=== PATIENT | female | born 1930 | race Caucasian/White ===

== ENCOUNTER 2019-07-04 13:13 | Emergency (ER) | payer OTHER ==
--- OUTSIDE RECORDS SUMMARY | 2019-07-04 13:16 | XMS REPORT ---
:1930 Author Organization eClinicalWorks Care Team Providers Name Role Phone Keith Castañeda Provider Role Unavailable Allergies, Adverse Reactions, Alerts Substance Reaction Event Type Sulfa digestive problems Drug Allergy Problems Problem Type Condition Code Onset Dates Condition Status Assessment Pain in left hip M25.552 Active Assessment Pain in right hip M25.551 Active Problem Essential (primary) hypertension I10 Active Problem Osteopenia, unspecified location M85.80 Active Problem Acquired hypothyroidism E03.9 Active Assessment Osteopenia, unspecified location M85.80 Active Assessment Acquired hypothyroidism E03.9 Active Assessment Essential (primary) hypertension I10 Active Medications Medication Code Code Instructions Start End Status Dosage System Date Date Lisinopril [facility] 52874165328 10 MG Orally Active 1 tablet Once a day Amlodipine [facility] 81893638995 10 MG Orally Active 1 tablet Besylate Once a day Levothyroxine [facility] 82497416617 50 MCG Orally Active 1 tablet Sodium Once a day on an empty stomach in the morning Metoprolol [facility] 70679442854 25 MG Orally Jul 10, Active 1 tablet Succinate ER Once a day 2018 Results No Known Results Summary Purpose eClinicalWorks Submission
--- OUTSIDE RECORDS SUMMARY | 2019-07-04 13:16 | XMS REPORT ---
:1930 Author Organization eClinicalWorks Care Team Providers Name Role Phone Keith Castañeda Provider Role Unavailable Allergies No Known Allergies Problems Problem Type Condition Code Onset Dates Condition Status Problem Essential (primary) hypertension I10 Active Problem Osteopenia, unspecified location M85.80 Active Problem Acquired hypothyroidism E03.9 Active Assessment Acquired hypothyroidism E03.9 Active Assessment Essential (primary) hypertension I10 Active Medications Medication Code Code Instructions Start End Status Dosage System Date Date Lisinopril [facility] 44241810414 20 MG Orally Active 1 tablet Once a day Metoprolol [facility] 91989912815 25 MG Orally Jul 10, Active 1 tablet Succinate ER Once a day 2018 Levothyroxine [place] 93824773993 50 MCG Orally Active 1 tablet Sodium Once a day on an empty stomach in the morning Amlodipine [facility] 28416073659 10 MG Orally Active 1 tablet Besylate Once a day Results No Known Results Summary Purpose eClinicalWorks Submission
--- OUTSIDE RECORDS SUMMARY | 2019-07-04 13:16 | XMS REPORT ---
[...] Active Assessment Acquired hypothyroidism E03.9 Active Assessment Osteopenia, unspecified location M85.80 Active Assessment Essential (primary) hypertension I10 Active Medications Medication Code Code Instructions Start End Status Dosage System Date Date Lisinopril [facility] 88430394111 20 MG Orally Active 1 tablet Once a day Levothyroxine [facility] 04649734302 50 MCG Orally Active 1 tablet Sodium Once a day on an empty stomach in the morning Amlodipine [facility] 43706346669 10 MG Orally Active 1 tablet Besylate Once a day Metoprolol [facility] 32799245299 25 MG Orally Jul 10, Active 1 tablet Succinate ER Once a day 2018 Results No Known Results Summary Purpose eClinicalWorks Submission
--- OUTSIDE RECORDS SUMMARY | 2019-07-04 13:16 | XMS REPORT ---
:1930 Author Organization eClinicalWorks Care Team Providers Name Role Phone Keith Castañeda Provider Role Unavailable Allergies No Known Allergies Problems Problem Type Condition Code Onset Dates Condition Status Problem Essential (primary) hypertension I10 Active Problem Osteopenia, unspecified location M85.80 Active Problem Acquired hypothyroidism E03.9 Active Assessment Essential (primary) hypertension I10 Active Medications Medication Code Code Instructions Start End Status Dosage System Date Date Metoprolol ND 70607862445 25 MG Orally Jul 10, Active 1 tablet Succinate ER Once a day 2018 Metoprolol [facility] 00121831069 25 MG Orally Inactive 1 capsule Succinate Once a day Results No Known Results Summary Purpose eClinicalWorks Submission
--- OUTSIDE RECORDS SUMMARY | 2019-07-04 13:16 | XMS REPORT ---
[...] End Status Dosage System Date Date Lisinopril [facility] 82001427392 5 MG Orally Active 1 tablet Once a day Amlodipine [facility] 23716787038 10 MG Orally Active 1 tablet Besylate Once a day Metoprolol [facility] 34437608271 25 MG Orally Active 1 capsule Succinate Once a day Levothyroxine [facility] 95500539972 50 MCG Orally Active 1 tablet Sodium Once a day on an empty stomach in the morning Results No Known Results Summary Purpose eClinicalWorks Submission
[2019-07-04] MEDS ORDERED: ONDANSETRON 4 MG/2 ML VIAL ONE (13:50)
[2019-07-04] MEDS ORDERED: MORPHINE 4 MG/ML SYR ONE (13:50)
--- NOTE | 2019-07-04 14:17 | RAD REPORT ---
EXAM DESCRIPTION: CT - CTHCSPWOC - 07/04/2019 1:55 pm CLINICAL HISTORY: Fall, head and neck injury COMPARISON: CT head and cervical spine August 2017, CT head February 2018 TECHNIQUE: Axial 5 mm thick images of the head were obtained. Axial 2 mm thick images of the cervic al spine were obtained with sagittal and coronal reconstruction images generated and reviewed. All CT scans are performed using dose optimization technique as appropriate and may include automated exposure control or mA/KV adjustment according to patient size. FINDINGS: No intracranial hemorrhage, mass, edema or acute intracranial finding. No suspicion for acute infarct ion. Advanced atrophy and chronic ischemic changes match comparison. Ventricles are in proportion to the amount of volume loss. Mastoid air cells and paranasal sinuses are clear. No globe or orbit abnor mality seen. Cervical bodies are normal in height. Slight retrolisthesis of C4 and C5 similar to comparison. C4-5 and C5-6 disc space narrowing also similar to comparison. There is bilateral bony foraminal encroachm ent at both of these levels. No other disc space narrowing. No fracture or acute bony abnormality. Ce ntral canal detail is inherently limited. No paraspinal mass or hematoma. IMPRESSION: Advanced atrophy and chronic ischemic changes are present with no acute intracranial fin ding. No significant changes to the head since February 2018. Cervical spine degenerative change as detailed. No acute finding.
--- NOTE | 2019-07-04 15:12 | RAD REPORT ---
EXAM DESCRIPTION: RAD - Knee Left 3 View - 07/04/2019 2:55 pm CLINICAL HISTORY: Fall, left knee pain COMPARISON: None. FINDINGS: No fracture, dislocation or periosteal reaction.No joint effusion seen. No joint space mary beth rowing. Minimal degenerative spurring at the articular margins. Arterial calcifications are present. No suspicious soft tissue finding. IMPRESSION: Minimal degenerative change with no acute bone or joint finding. Clinical concerns for internal derangement or occult bony injury could be further assessed with MR im aging.
--- NOTE | 2019-07-04 15:13 | RAD REPORT ---
EXAM DESCRIPTION: RAD - Wrist Left 3 View - 07/04/2019 2:55 pm CLINICAL HISTORY: Fall, left wrist pain COMPARISON: None. FINDINGS: Comminuted distal left radius fracture is present. There is a transverse fracture of the m etaphysis an a sagittally oriented fracture that extends to the articular surface. Approximately 20 d egree dorsal angulation deformity is seen with mild dorsal surface impaction. Small ulna styloid is p robably fractured as well. There is no dislocation or periosteal reaction noted. Soft tissue swelling is present. IMPRESSION: Comminuted distal left radius fracture as detailed.
[2019-07-04] MEDS ORDERED: DERMABOND SKIN ADHESIVE TOP ONE (15:14)
[2019-07-04] MEDS ORDERED: LIDOCAINE 1% MPF 5 ML VIAL ONE (15:17)
[2019-07-04] MEDS ORDERED: TRAMADOL HCL 50 MG TAB ONE (15:18)
--- NOTE | 2019-07-04 15:43 | ER ---
Nurse's Notes [facility] Name: Ольга Altman Age: 88 yrs Sex: Female : 1930 Arrival Date: 07/04/2019 Time: 13:17 Bed 24 Private MD: Diagnosis: Laceration of lower lip without foreign body;Displaced fracture of head of left radius Presentation: 07/04 13:22 Presenting complaint: Patient states: She stumbled over her feet and fell and hit her [facility] face and her hands. Blood noted to lower lip, splint applied to left wrist by EMS. Patient states "It's obviously broken, you can see where its shaped wrong" Bruising noted to left knee. Denies LOC, vomiting. Denies taking any blood thinners. Care prior to arrival: None. Mechanism of Injury: Fall from standing position. Trauma event details: Injury occurred in the [facility]. 13:22 Acuity: KENNEY 3 aj1 13:22 Method Of Arrival: EMS: [facility] aj1 13:28 Transition of care: patient was not received from another setting of care. Onset of [facility] symptoms was July 04, 2019. Risk Assessment: Do you want to hurt yourself or someone else? Patient reports no desire to harm self or others. Initial Sepsis Screen: Does the patient meet any 2 criteria? No. Patient's initial sepsis screen is negative. Does the patient have a suspected source of infection? No. Patient's initial sepsis screen is negative. Historical: - Allergies: 13:29 Codeine; aj1 13:29 Levothyroxine Sodium; aj1 13:29 Metoprolol Tartrate; aj1 13:29 Sulfa (Sulfonamide Antibiotics); aj1 13:29 Demerol; aj1 13:29 Fentanyl; aj1 - Home Meds: 13:29 Lisinopril Oral [Active]; aj1 - PMHx: 13:29 Atrial Fib; gallbladder infection; Hypertension; Hypothyroidism; aj1 - Immunization history:: Flu vaccine is not up to date. - Social history:: Smoking status: Patient/guardian denies using tobacco. - Ebola Screening: : Patient denies travel to an Ebola-affected area in the 21 days before illness onset. Screenin:22 Abuse screen: Denies threats or abuse. Denies injuries from another. Tuberculosis aj1 screening: No symptoms or risk factors identified. Primary Survey: 13:22 NO uncontrolled hemorrhage observed. A: The patient is alert. Airway: patent. aj1 Breathing/Chest: Respiratory pattern: regular, Respiratory effort: spontaneous, unlabored, Breath sounds: clear, bilaterally. Chest inspection: symmetrical rise and fall of the chest. Circulation: Pulses: palpable right radial artery, right dorsalis pedis artery, left radial artery and left dorsalis pedis artery. Skin color: pink. Disability Alert. Exposure/Environment: Obvious injury(ies) are noted at this time: Blood noted to lower lip, swelling to left wrist, bruising to left knee. Secondary Survey: 13:22 HEENT: Face Other Dried blood noted to lower lip. Gastrointestinal: No deficits noted. aj1 : No deficits noted. Musculoskeletal: Range of motion: limited in left wrist Swelling present in left wrist. Assessment: 13:00 Reassessment: Patient appears in no apparent distress at this time. pt request rings sg removed from finger and placed in zebra print coin pouch by Reynaldo PIMENTEL. 13:22 General: Appears in no apparent distress. uncomfortable, Behavior is calm, cooperative, aj1 appropriate for age. Pain: Complains of pain in left wrist Pain does not radiate. Pain currently is 9 out of 10 on a pain scale. Quality of pain is described as sharp, Pain began suddenly, Is continuous, Aggravated by repositioning. Neuro: Level of Consciousness is awake, alert, obeys commands, Oriented to person, place, time, situation. EENT: No signs and/or symptoms were reported regarding the EENT system. Cardiovascular: Patient's skin is warm and dry. Respiratory: Airway is patent Respiratory effort is even, unlabored, Respiratory pattern is regular, symmetrical, Breath sounds are clear bilaterally. GI: No signs and/or symptoms were reported involving the gastrointestinal system. : No signs and/or symptoms were reported regarding the genitourinary system. Derm: Bruising that is dark purple, on left knee. Musculoskeletal: Range of motion: limited in left wrist Swelling present in left wrist. 16:30 Reassessment: Patient appears in no apparent distress at this time. Patient and/or sg family updated on plan of care and expected duration. Pain level reassessed. Patient is alert, oriented x 3, equal unlabored respirations, skin warm/dry/pink. Vital Signs: 13:22 BP 176 / 106; Pulse 71; Resp 18; Temp 98.0; Pulse Ox 99% on R/A; Weight 81.65 kg (R); aj1 Height 5 ft. 4 in. (162.56 cm) (R); Pain 9/10; 14:20 BP 144 / 72; Pulse 77; Resp 17; Pulse Ox 99% on R/A; sg 15:20 BP 146 / 78; Pulse 69; Resp 17; Pulse Ox 99% on R/A; sg 16:20 BP 142 / 76; Pulse 71; Resp 18; Temp 98.0; Pulse Ox 99% on R/A; sg 13:22 Body Mass Index 30.90 (81.65 kg, 162.56 cm) aj1 [place] Coma Score: 13:22 Eye Response: spontaneous(4). Verbal Response: oriented(5). Motor Response: obeys aj1 commands(6). Total: 15. Trauma Score (Adult): 13:22 Eye Response: spontaneous(1); Verbal Response: oriented(1); Motor Response: obeys aj1 commands(2); Systolic BP: > 89 mm Hg(4); Respiratory Rate: 10 to 29 per min(4); [place] Score: 15; Trauma Score: 12 ED Course: 13:17 Patient arrived in ED. sg 13:17 Reynaldo Villasenor [facility]-C [facility]. la1 13:17 Hernando Robertson MD is Attending Physician. la1 13:21 Gustavo Steel, RN is Primary Nurse. sg 13:22 Patient has correct armband on for positive identification. Bed in low position. Call aj1 light in reach. 13:22 Patient maintains SpO2 saturation greater than 95% on room air. Thermoregulation: warm aj1 blanket given to patient. 13:24 Triage completed. aj1 13:29 Arm band placed on. aj1 13:30 Missed attempt(s): 22 gauge in right hand. Bleeding controlled, band aid applied, sg catheter tip intact. 13:37 Missed attempt(s): 22 gauge in right wrist. Bleeding controlled, band aid applied, sg catheter tip intact. 13:53 CT completed. Patient tolerated procedure well. Patient moved back from CT. bq 13:55 CT Head C Spine In Process Unspecified. EDMS 14:56 Knee Left 3 View XRAY In Process Unspecified. EDMS 14:56 Wrist Left (3 View) XRAY In Process Unspecified. EDMS 15:10 Orthoglass splint: Sugar tong splint applied on left arm. Sling applied to left arm. sg 16:30 No provider procedures requiring assistance completed. Patient did not have IV access sg during this emergency room visit. Administered Medications: 14:56 CANCELLED (Other Intervention Used): Demerol 25 mg IM once; RASS on ADMIN: Combtv4, la1 Very Agttd3, Agttd2, Rstlss1, AlertClm0, Drwsy-1, Lt Sdtn-2, Mod Sdtn-3, Dp Sdtn-4, UnArsble-5 15:21 Drug: Lidocaine (1 %) 5 ml Volume: 5 ml; Route: Infiltration; sg 15:30 Not Given (Other Intervention Used): morphine 2 mg IVP once; (PAIN>8) RASS on ADMN: la1 Combtv4, Very Agttd3, Agttd2, Rstlss1, AlertClm0, Drwsy-1, LtSdtn-2, ModSdtn-3, DpSdtn-4, UnArsble-5 x2 15:30 Not Given (Other Intervention Used): Zofran 4 mg IVP once; over 2 minutes la1 15:30 Not Given (Other Intervention Used): morphine 2 mg IM once; RASS on ADMIN: Combtv4, la1 Very Agttd3, Agttd2, Rstlss1, AlertClm0, Drwsy-1, Lt Sdtn-2, Mod Sdtn-3, Dp Sdtn-4, UnArsble-5 15:51 Drug: traMADol 50 mg Route: PO; sg 16:30 Follow up: Response: No adverse reaction; Pain is decreased sg Outcome: 15:42 Discharge ordered by . la1 16:30 Discharged to home via wheelchair, with family. sg 16:30 Condition: good 16:30 Discharge instructions given to patient, family, Instructed on discharge instructions, follow up and referral plans. no drinking with medication, no driving heavy equipment, medication usage, safety practices, Demonstrated understanding of instructions, follow-up care, medications, Prescriptions given X 1. 16:30 Patient's length of stay in the Emergency Department was greater than 2 hours. sg 16:32 Patient left the ED. sg Signatures: Dispatcher [employer] EDLeela Lipscomb RN RN aj1 Gustavo Steel RN RN Tory Augustine Lee, EMBEDDER-C EMBEDDER-Cla1
--- NOTE | 2019-07-04 15:43 | EDPHYS ---
Physician Documentation [facility] Name: Ольга Altman Age: 88 yrs Sex: Female : 1930 Arrival Date: 07/04/2019 Time: 13:17 Bed 24 Private MD: ED Physician Hernando Robertson HPI: 07/04 13:31 This 88 yrs old Female presents to ER via EMS with complaints of Fall Injury. la1 13:31 Details of fall: The patient fell from an upright position, while walking. Onset: The la1 symptoms/episode began/occurred just prior to arrival. Associated injuries: The patient sustained neck injury, pain, nose, abrasion, lower lip, laceration, 0.5 cm(s), left knee, contusion, left wrist, deformity, ecchymosis, painful injury. Severity of symptoms: At their worst the symptoms were moderate. The patient has not experienced similar symptoms in the past. pt reports she was walking up her steps and tripped on the step falling forward. Reports deformity to left wrist, currently in too splint and sling. cap refill <2 seconds distal to injury site. Pt alert, oriented x4, denies LOC or use of blood thinners. Historical: - Allergies: 13:29 Codeine; aj1 13:29 Levothyroxine Sodium; aj1 13:29 Metoprolol Tartrate; aj1 13:29 Sulfa (Sulfonamide Antibiotics); aj1 13:29 Demerol; aj1 13:29 Fentanyl; aj1 - Home Meds: 13:29 Lisinopril Oral [Active]; aj1 - PMHx: 13:29 Atrial Fib; gallbladder infection; Hypertension; Hypothyroidism; aj1 - Immunization history:: Flu vaccine is not up to date. - Social history:: Smoking status: Patient/guardian denies using tobacco. - Ebola Screening: : Patient denies travel to an Ebola-affected area in the 21 days before illness onset. ROS: 15:32 Constitutional: Negative for fever, chills, and weight loss, Eyes: Negative for injury, la1 pain, redness, and discharge. 15:33 ENT: Negative for injury, pain, and discharge, Neck: Negative for injury, pain, and la1 swelling, Cardiovascular: Negative for chest pain, palpitations, and edema, Respiratory: Negative for shortness of breath, cough, wheezing, and pleuritic chest pain, Abdomen/GI: Negative for abdominal pain, nausea, vomiting, diarrhea, and constipation, Back: Negative for injury and pain, : Negative for injury, bleeding, discharge, and swelling. 15:33 Neuro: Negative for headache, weakness, numbness, tingling, and seizure. 15:33 MS/extremity: Positive for deformity, ecchymosis, pain, swelling, tenderness, of the left wrist. 15:33 Skin: Positive for laceration(s), of the lower lip. Exam: 15:34 Constitutional: This is a well developed, well nourished patient who is awake, alert, la1 and in no acute distress. Head/Face: Normocephalic, atraumatic. Eyes: Pupils equal round and reactive to light, extra-ocular motions intact. Periorbital areas with no swelling, redness, or edema. 15:34 Neck: Trachea midline, no thyromegaly or masses palpated, and no cervical lymphadenopathy. Supple, full range of motion without nuchal rigidity, or vertebral point tenderness. No Meningismus. Chest/axilla: Normal chest wall appearance and motion. Nontender with no deformity. No lesions are appreciated. Cardiovascular: Regular rate and rhythm with a normal S1 and S2. Respiratory: Lungs have equal breath sounds bilaterally, clear to auscultation Abdomen/GI: Soft, non-tender, with normal bowel sounds. Back: No spinal tenderness. No costovertebral tenderness. Full range of motion. 15:34 ENT: External ear(s): are unremarkable, Ear canal(s): are normal, Nose: is normal, Mouth: Lips: lacerated, approximately 2.5 cm(s), lower lip. 15:34 Musculoskeletal/extremity: Extremities: noted in the left wrist: deformity, ecchymosis, pain, swelling, tenderness, Pulses: noted to be 3+ in the right radial artery and left radial artery, Perfusion: the patient is normally perfused throughout, pink, warm, noted to have brisk capillary refill, Perfusion: the extremity is normally perfused throughout, pink, warm, with brisk capillary refill. 15:34 Skin: injury, abrasion(s), very small abrasion noted, of the nose, contusion(s), that are superficial, of the left knee. Vital Signs: 13:22 BP 176 / 106; Pulse 71; Resp 18; Temp 98.0; Pulse Ox 99% on R/A; Weight 81.65 kg (R); aj1 Height 5 ft. 4 in. (162.56 cm) (R); Pain 9/10; 14:20 BP 144 / 72; Pulse 77; Resp 17; Pulse Ox 99% on R/A; sg 15:20 BP 146 / 78; Pulse 69; Resp 17; Pulse Ox 99% on R/A; sg 16:20 BP 142 / 76; Pulse 71; Resp 18; Temp 98.0; Pulse Ox 99% on R/A; sg 13:22 Body Mass Index 30.90 (81.65 kg, 162.56 cm) aj1 [place] Coma Score: 13:22 Eye Response: spontaneous(4). Verbal Response: oriented(5). Motor Response: obeys aj1 commands(6). Total: 15. Trauma Score (Adult): 13:22 Eye Response: spontaneous(1); Verbal Response: oriented(1); Motor Response: obeys aj1 commands(2); Systolic BP: > 89 mm Hg(4); Respiratory Rate: 10 to 29 per min(4); Carlton Score: 15; Trauma Score: 12 Laceration: 15:31 Wound Repair of 2.5cm ( 1.0in ) subcutaneous laceration to lower lip. Distal la1 neuro/vascular/tendon intact. Anesthesia: Local anesthetic administered with 2 mls of 1% lidocaine. Wound prep: Moderate cleansing, Copious irrigation. Skin closed with 3 5-0 chromic using simple sutures and sterile technique. Patient tolerated well. MDM: 13:17 Patient medically screened. la1 14:31 ED course: Pt refused IV, states they can only put it in her hand but hand vein is la1 blown, will not let staff attempt elsewhere, states she cannot take morphine but whatever we gave her in the past works, looked though old records and pt had received demerol in the past, will give demerol IM for pain control until it is determined if the pt wrist will need to be reduced.. 15:37 Data reviewed: vital signs, nurses notes, radiologic studies, I have discussed the la1 patient's presentation/case with the attending Emergency Department Physician; and as a result, I will discharge patient. Data interpreted: Pulse oximetry: on room air is 99 %. Interpretation: normal. Test interpretation: by ED physician or midlevel provider: plain radiologic studies. Counseling: I had a detailed discussion with the patient and/or guardian regarding: the historical points, exam findings, and any diagnostic results supporting the discharge/admit diagnosis, the presence of at least one elevated blood pressure reading (>120/80) during this emergency department visit, lab results, radiology results, the need for outpatient follow up, a orthopedic surgeon, to return to the emergency department if symptoms worsen or persist or if there are any questions or concerns that arise at home. ED course: discussed radiology findings with Dr. Robertson, will splint have have patient FU with ortho, pulses 3+ radial PETAR, no numbness or tingling reported, pain not out of proportion, cap refill < 3 secs.. 07/04 13:27 Order name: CT Head C Spine; Complete Time: 14:50 la1 07/04 13:27 Order name: Knee Left 3 View XRAY la1 07/04 13:27 Order name: Wrist Left (3 View) XRAY la1 07/04 15:20 Order name: Dressing - Wound; Complete Time: 15:31 sg 07/04 15:20 Order name: Setup Suture Tray; Complete Time: 15:31 sg 07/04 15:32 Order name: Sugar Tong Forearm Splint; Complete Time: 15:51 la1 Administered Medications: 14:56 CANCELLED (Other Intervention Used): Demerol 25 mg IM once; RASS on ADMIN: Combtv4, la1 Very Agttd3, Agttd2, Rstlss1, AlertClm0, Drwsy-1, Lt Sdtn-2, Mod Sdtn-3, Dp Sdtn-4, UnArsble-5 15:21 Drug: Lidocaine (1 %) 5 ml Volume: 5 ml; Route: Infiltration; sg 15:30 Not Given (Other Intervention Used): morphine 2 mg IVP once; (PAIN>8) RASS on ADMN: la1 Combtv4, Very Agttd3, Agttd2, Rstlss1, AlertClm0, Drwsy-1, LtSdtn-2, ModSdtn-3, DpSdtn-4, UnArsble-5 x2 15:30 Not Given (Other Intervention Used): Zofran 4 mg IVP once; over 2 minutes la1 15:30 Not Given (Other Intervention Used): morphine 2 mg IM once; RASS on ADMIN: Combtv4, la1 Very Agttd3, Agttd2, Rstlss1, AlertClm0, Drwsy-1, Lt Sdtn-2, Mod Sdtn-3, Dp Sdtn-4, UnArsble-5 15:51 Drug: traMADol 50 mg Route: PO; sg 16:30 Follow up: Response: No adverse reaction; Pain is decreased sg Disposition: 07/05 15:46 Co-signature as Attending Physician, Hernando Robertson MD. ma2 Disposition: 07/04/19 15:42 Discharged to Home. Impression: Laceration of lower lip without foreign body, Displaced fracture of head of left radius. - Condition is Stable. - Discharge Instructions: Cast or Splint Care, Adult, Facial Laceration, Wrist Fracture Treated With Immobilization, Wrist Fracture Treated With Immobilization, [id number]. - Prescriptions for Tramadol 50 mg Oral Tablet - take 1 tablet by ORAL route every 8 hours as needed; 20 tablet. - Medication Reconciliation Form, Thank You Letter, Prescription Opioid Use form. - Follow up: Private Physician; When: 2 - 3 days; Reason: Recheck today's complaints, Re-evaluation by your physician. - Problem is new. - Symptoms have improved. - Notes: Please call to schedule appointment with an orthopedic doctor Friday or Friday morning, if your pain or symptoms get worse please immediately return to the emergency department. There is a list of the orthopedic doctors in your paperwork. Take ibuprofen and tylenol at home and the tramadol only has needed for pain. Keep your splint on until you follow up with the orthopedic doctor. Signatures: Dispatcher [employer] EDLeela Lipscomb RN RN aj1 Gustavo Steel RN RN sg Attema, Lee, FNP-C MARGARITO-Hernando Garcia MD MD ma2 Corrections: (The following items were deleted from the chart) 07/04 14:56 14:31 Demerol 25 mg IM once; RASS on ADMIN: Combtv4, Very Agttd3, Agttd2, Rstlss1, la1 AlertClm0, Drwsy-1, Lt Sdtn-2, Mod Sdtn-3, Dp Sdtn-4, UnArsble-5 ordered. la1 15:30 13:27 IV Saline Lock ordered. la1 la1 15:30 15:20 Sterile Gloves ordered. sg la1 16:32 15:42 07/04/2019 15:42 Discharged to Home. Impression: Laceration of lower lip without sg foreign body; Displaced fracture of head of left radius. Condition is Stable. Forms are Medication Reconciliation Form, Thank You Letter, Antibiotic Education, Prescription Opioid Use. Follow up: Private Physician; When: 2 - 3 days; Reason: Recheck today's complaints, Re-evaluation by your physician. Problem is new. Symptoms have improved. la1
== END 2019-07-04 16:32 | disposition home or self-care (01) ==
LOC: ER 13:13
PROC: 0CQ1XZZ Repair Lower Lip, External Approach (ICD-10-PCS; principal; 2019-07-04)
DX: S52.122A Displaced fracture of head of left radius, initial encounter for closed fracture (principal); W01.0XXA Fall on same level from slipping, tripping and stumbling without subsequent striking against object, initial encounter; Y93.9 Activity, unspecified; Y92.9 Unspecified place or not applicable; S01.511A Laceration without foreign body of lip, initial encounter; Z88.6 Allergy status to analgesic agent; Z88.2 Allergy status to sulfonamides; I10 Essential (primary) hypertension
CPT/HCPCS: 70450; 72125; 99285; J2405

== ENCOUNTER 2020-04-08 15:21 | Inpatient (IN) | payer OTHER ==
--- OUTSIDE RECORDS SUMMARY | 2020-04-08 15:32 | XMS REPORT | Continuity of Care Document ---
:1930 Author Organization [facility] t Address [address] [place] [address] Care Team Providers Name Role Phone Susan Biswas MD Attending Clinician Problems Condition Condition Condition Status Onset Resolution Last Treating Co mments Source Name Details Category Date Date Treatment Clinician Date Essential Essential Diagnosis Active [facility]primary[facility] (primary) Luke s - hypertensi hypertensi Me moria on on l [facility] Osteopenia Osteopenia Diagnosis Active [facility] , [facility] - unspecifie unspecifie Me moria d location d location l [facility] Acquired Acquired Diagnosis Active [facility] hypothyroi hypothyroi Jessica kes - dism dism [facility] Allergies, Adverse Reactions, Alerts Allergy Allergy Status Severity Reaction(s) Onset Inactive Treating Comm ents Source Name Type Date Date Clinician Sulfa Adverse Active digestive [facility] Reaction problems [facility] - [facility] Medications Ordered Filled Start Stop Current Ordering Indication Dosage Frequency Signature Comments Components Source Medication Medication Date Date Medication? Clinician (SIG) Name Name Metoprolol Metoprolol Yes Keith [address] [facility] Succinate Succinate 1-25 Maddy Luke s - ER ER 00:00: [facility]oria 00 l [facility] Amlodipine Amlodipine Yes Keith [address] [facility] Besylate Besylate Maddy [facility] - [facility] Levothyroxi Levothyroxi Yes Keith [address] [facility] ne Sodium ne Sodium Maddy on an Stef es - empty [facility] stomach in l [facility] Lisinopril Lisinopril Yes Keith [address] [facility] Maddy [facility] - [facility] Procedures This patient has no known procedures. Encounters Start End Encounter Admission Attending Care Care Encounter Source Date/Time Date/Time Type Type Clinicians Facility Department ID 2019-07-28 2019-07-28 Office SIMONE Biswas [id number] 13:42:08 14:29:42 Visit [facility] [id number] Surgical [id number] Specialti [id number] [address] 2018-08-25 2018-08-25 [facility] [id number] [facility] 09:15:00 09:15:00 [facility] 2018-08-11 2018-08-11 [facility] [id number] 09:45:00 09:45:00 [facility] 2018-08-03 2018-08-03 [facility] [id number] [facility] 11:00:00 11:00:00 [facility] 2018-07-09 2018-07-09 [facility] [id number] [facility] [address] 16:56:00 16:56:00 [facility] 2018-07-09 2018-07-09 [facility] [id number] [address] 11:15:00 11:15:00 [facility] Clinics Results This patient has no known results.
[2020-04-08] MEDS ORDERED: MEPERIDINE HCL 50 MG/ML ONE (16:09)
[2020-04-08] MEDS ORDERED: ONDANSETRON 4 MG/2 ML VIAL ONE (16:27)
[2020-04-08 17:35] LABS: ALT/SGPT 20 U/L (12-78); Albumin 3.6 g/dL (3.4-5.0); Alkaline Phosphatase 92 U/L (45-117); BUN Blood Urea Nitrogen 16 mg/dL (7-18); Bicarbonate 31 mmol/L (21-32); Bilirubin Direct < 0.1 mg/dL (0-0.2); Bilirubin Total 0.4 mg/dL (0.2-1.0); Glucose Level 115 mg/dL (74-106); Lipase 103 U/L (73-393); Protein, Total 7.7 g/dL (6.4-8.2); Sodium Level 141 mmol/L (136-145)
[2020-04-08 17:36] LABS: AST/SGOT 19 U/L (15-37); Potassium 3.8 mmol/L (3.5-5.1)
[2020-04-08 17:40] LABS: Basophils % 0.2 % (0-1.3); Hematocrit 42.5 % (36.0-45.0); Lymphocytes % 7.5 % (15.3-44.8); MPV 7.3 fL (7.6-11.3); RBC Red Blood Cell Count 4.79 M/uL (3.86-4.86)
[2020-04-08 20:06] LABS: Urine Bacteria <20 /HPF (<20); Urine Culture Reflex Order NOT NEEDED; Urine RBC <5 /HPF (NONE SEEN)
[2020-04-08 20:07] LABS: Urine Blood NEGATIVE (NEG); Urine Glucose NEGATIVE (NEG); Urine Protein 1+ (NEG); Urine Specific Gravity 1.025 (1.005-1.030)
--- NOTE | 2020-04-08 21:07 | RAD REPORT ---
EXAM DESCRIPTION: CTAbdomen Pelvis W Contrast - 04/08/2020 8:51 pm CLINICAL HISTORY: Abdominal pain. ABD PAIN COMPARISON: Abdomen Pelvis W Contrast dated 01/08/2017 TECHNIQUE: Biphasic CT imaging of the abdomen and pelvis was performed with 100 ml non-ionic IV cont rast. All CT scans are performed using dose optimization technique as appropriate and may include automated exposure control or mA/KV adjustment according to patient size. FINDINGS: The lung bases are clear. Small gallstone is present in the gallbladder. Mild fatty liver is seen. Mild fluid is seen around the liver edge. Mild fluid is also noted around t he spleen. Spleen is normal in size. Small hiatal hernia. The pancreas, adrenal glands and kidneys ar e within normal limits. No focal mass or hydronephrosis. No bowel obstruction, free air, free fluid or abscess. Mild sigmoid diverticulosis coli without diver ticulitis. The appendix is not identified as a discrete structure, however, no secondary findings of appendicitis are identified. No evidence of significant lymphadenopathy. Mild lumbar degenerative changes. IMPRESSION: Cholelithiasis. Mild fatty liver with mild fluid around the liver spleen. Small hiatal hernia. Sigmoid diverticulosis coli without diverticulitis.
--- NOTE | 2020-04-08 21:40 | EDPHYS ---
Physician Documentation [facility] Name: Ольга Altman Age: 89 yrs Sex: Female : 1930 Arrival Date: 04/08/2020 Time: 15:24 Bed 8 Private MD: ED Physician Babatunde Crowley HPI: 04/08 15:36 This 89 yrs old Female presents to ER via EMS with complaints of Abdominal rn Pain. 15:36 The patient presents with abdominal pain right lower quadrant. Onset: The rn symptoms/episode began/occurred today. The symptoms do not radiate. Associated signs and symptoms: Pertinent positives: nausea, Pertinent negatives: blood in stools, fever, shortness of breath, vomiting blood. Modifying factors: The symptoms are alleviated by nothing, the symptoms are aggravated by touching the area. Severity of pain: At its worst the pain was moderate in the emergency department the pain is unchanged. The patient has not experienced similar symptoms in the past. The patient has not recently seen a physician. Historical: - Allergies: 15:25 Codeine; rb1 15:25 Demerol; rb1 15:25 Fentanyl; rb1 15:25 Levothyroxine Sodium; rb1 15:25 Metoprolol Tartrate; rb1 15:25 Sulfa (Sulfonamide Antibiotics); rb1 - Home Meds: 15:25 Lisinopril Oral [Active]; rb1 - PMHx: 15:25 Atrial Fib; gallbladder infection; Hypertension; Hypothyroidism; rb1 - Immunization history:: Adult Immunizations up to date. - Social history:: Smoking status: Patient/guardian denies using. - Family history:: not pertinent. - Hospitalizations: : No recent hospitalization is reported. ROS: 15:36 Constitutional: Negative for fever, chills, and weight loss, Eyes: Negative for injury, rn pain, redness, and discharge, Cardiovascular: Negative for chest pain, palpitations, and edema, Respiratory: Negative for shortness of breath, cough, wheezing, and pleuritic chest pain, Abdomen/GI: Negative for vomiting, and constipation, Back: Negative for injury and pain, : Negative for injury, bleeding, discharge, and swelling, MS/Extremity: Negative for injury and deformity, Skin: Negative for injury, rash, and discoloration, Neuro: Negative for headache, weakness, numbness, tingling, and seizure. Exam: 15:36 Constitutional: This is a well developed, well nourished patient who is awake, alert, rn and in no acute distress. Head/Face: Normocephalic, atraumatic. ENT: MMM Cardiovascular: Regular rate and rhythm. No pulse deficits. Respiratory: No increased work of breathing, no retractions or nasal flaring. Abdomen/GI: soft, right sided abd tenderness, no distension, no masses Skin: Warm, dry MS/ Extremity: Pulses equal, no cyanosis. Neurovascular intact. Full, normal range of motion. Equal circumference. Neuro: Awake and alert, GCS 15, oriented to person, place, time, and situation. Vital Signs: 15:25 BP 169 / 106; Pulse 64; Resp 17; Temp 97.6; Pulse Ox 98% ; Weight 86.18 kg; Height 8 rb1 ft. 56 in. (386.08 cm); Pain 7/10; 16:22 BP 179 / 114; Pulse 71; Resp 16; Pulse Ox 98% ; rb1 17:21 BP 180 / 106; Pulse 70; Resp 17; Pulse Ox 99% ; rb1 19:00 BP 170 / 97; Pulse 81; Resp 17; Pulse Ox 97% on R/A; rv 20:00 BP 165 / 81; Pulse 79; Resp 18; Pulse Ox 97% on R/A; rv 21:00 BP 171 / 88; Pulse 76; Resp 17; Pulse Ox 96% on R/A; rv 22:00 BP 165 / 86; Pulse 81; Resp 17; Temp 98; Pulse Ox 96% on R/A; rv 15:25 Body Mass Index 5.78 (86.18 kg, 386.08 cm) rb1 Procedures: 17:13 Peripheral line: by aseptic technique a peripheral line was placed in the right rn antecubital vein, Placed by Dr. Crowley using ultrasound guidance.. MDM: 15:25 Patient medically screened. rn 16:00 Differential diagnosis: appendicitis, cholecystitis, Cholelithiasis, non-specific abd cp pain, pancreatitis, Peptic Ulcer Disease, Perf. Duodenal Ulcer, Perf. Gastric Ulcer, Pyelonephritis, Ureterolithiasis, urinary tract infection, colitis. 21:30 Physician consultation: Surendra Guido MD was called at 21:25, was contacted at 21:25, cp regarding consult, patient's condition, and will see patient in inpatient room, tomorrow. 21:30 Data reviewed: vital signs, nurses notes, lab test result(s), radiologic studies, CT cp scan, and as a result, I will admit patient. 21:40 Physician consultation: Prince Ladarius HOPPER was called at 21:35, was contacted at 21:35, regarding admission, to the medical/surgical unit. patient's condition. 04/08 15:26 Order name: Basic Metabolic Panel; Complete Time: 17:39 rn 04/08 19:27 Interpretation: Normal except: GLUC 115; GFR 45. 04/08 15:26 Order name: CBC with Diff; Complete Time: 18:46 rn 04/08 21:16 Interpretation: Normal except: WBC 13.5; MPV 7.3; NEW% 84.9; LYM% 7.5; NEUT A 11.5. 04/08 15:26 Order name: Hepatic Function; Complete Time: 17:39 rn 04/08 15:26 Order name: Lipase; Complete Time: 17:39 04/08 15:26 Order name: Urine Microscopic Only; Complete Time: 21:15 04/08 19:09 Order name: Glucose, Ancillary Testing; Complete Time: 19:26 EDMS 04/08 19:26 Interpretation: GLUC,ANCIL 125; Reviewed. 04/08 15:26 Order name: CT Abd/Pelvis - IV Contrast Only; Complete Time: 21:15 rn 04/08 19:37 Order name: Urine Dipstick--Ancillary (enter results); Complete Time: 21:15 mw2 04/08 21:37 Order name: Lactate; Complete Time: 07:37 04/08 21:37 Order name: Procalcitonin; Complete Time: 07:37 04/08 21:37 Order name: US Abdomen Limited: RUQ/epigastric 04/08 15:26 Order name: IV Saline Lock; Complete Time: 17:21 rn 04/08 15:26 Order name: Labs collected and sent; Complete Time: 17:21 rn 04/08 15:26 Order name: Urine Dipstick-Ancillary (obtain specimen); Complete Time: 19:28 rn Administered Medications: 17:04 Not Given (Allergy): Demerol - Meperidine 12.5 mg IVP once; RASS on ADMIN: Combtv4, rb1 Very Agttd3, Agttd2, Rstlss1, AlertClm0, Drwsy-1, Lt Sdtn-2, Mod Sdtn-3, Dp Sdtn-4, UnArsble-5 21:41 Drug: Rocephin 1 grams Route: IV; Rate: calculated rate; Site: left antecubital; rv 22:14 Follow up: IV Status: Completed infusion rv 21:53 Drug: Flagyl 500 mg Volume: 100 ml; Route: IVPB; Rate: 200 ml/hr; Infused Over: 30 mg2 mins; Site: left antecubital; Disposition: 04/09 07:38 Co-signature as Attending Physician, Babatunde Crowley MD. rn Disposition: 04/08/20 21:39 Hospitalization ordered by Prince Ladarius for Inpatient Admission. Preliminary diagnosis are Cholelithiasis, Unspecified abdominal pain. - Bed requested for Telemetry/MedSurg (Inpatient). - Status is Inpatient Admission. rv - Condition is Stable. - Problem is new. - Symptoms have improved. Signatures: Dispatcher [employer] EDMS Darby Harvey, MARGARITO-C TELEVISION PI[employer]URE T[employer]BE REBUILDER-Csnw Babatunde Crowley MD MD rn David Garcia PA PA cp Summer Menon, RN RN rb1 Shree Morocho mw2 Reese Horton RN RN mg2 Giorgio Amin RN RN rv Corrections: (The following items were deleted from the chart) 04/08 21:16 21:16 Normal except: WBC 13.5. cp cp 21:46 21:39 Hospitalization Ordered by Prince Ladarius HOPPER for Inpatient Admission. Preliminary mw2 diagnosis is Cholelithiasis; Unspecified abdominal pain. Bed requested for Telemetry/MedSurg (Inpatient). Status is Inpatient Admission. Condition is Stable. Problem is new. Symptoms have improved. cp 22:13 21:46 04/08/2020 21:39 Hospitalization Ordered by Prince Ladarius HOPPER for Inpatient rv Admission. Preliminary diagnosis is Cholelithiasis; Unspecified abdominal pain. Bed requested for Telemetry/MedSurg (Inpatient). Status is Inpatient Admission. Condition is Stable. Problem is new. Symptoms have improved. mw2
--- NOTE | 2020-04-08 21:40 | ER ---
Nurse's Notes [facility] Name: Ольга Altman Age: 89 yrs Sex: Female : 1930 Arrival Date: 04/08/2020 Time: 15:24 Bed 8 Private MD: Diagnosis: Cholelithiasis;Unspecified abdominal pain Presentation: 04/08 15:25 Chief complaint: EMS states: Pt. is 81 years old, is a little confused. C/o pain in the rb1 RUQ and RLQ that started last night and nausea. BP 188 systolic, T 97.6. History of hypertension. Medications: Lisinopril. Coronavirus screen: At this time, the client does not indicate any symptoms associated with coronavirus-19. Ebola Screen: Patient denies travel to an Ebola-affected area in the 21 days before illness onset. Risk Assessment: Do you want to hurt yourself or someone else? Patient reports no desire to harm self or others. Onset of symptoms was April 07, 2020. 15:25 Method Of Arrival: EMS: [facility] rb1 15:25 Acuity: KENNEY 3 rb1 15:25 Initial Sepsis Screen: Does the patient meet any 2 criteria? No. Patient's initial rb1 sepsis screen is negative. Does the patient have a suspected source of infection? No. Patient's initial sepsis screen is negative. Triage Assessment: 15:25 General: Appears in no apparent distress. comfortable, Behavior is calm, cooperative. rb1 Pain: Complains of pain in right upper quadrant and right lower quadrant Pain began last night but got worse today. Neuro: Level of Consciousness is awake, confused, Oriented to person. Cardiovascular: Patient's skin is warm and dry. Respiratory: Airway is patent Respiratory effort is even, unlabored, Respiratory pattern is regular, symmetrical. GI: Reports nausea. : No signs and/or symptoms were reported regarding the genitourinary system. Historical: - Allergies: 15:25 Codeine; rb1 15:25 Demerol; rb1 15:25 Fentanyl; rb1 15:25 Levothyroxine Sodium; rb1 15:25 Metoprolol Tartrate; rb1 15:25 Sulfa (Sulfonamide Antibiotics); rb1 - Home Meds: 15:25 Lisinopril Oral [Active]; rb1 - PMHx: 15:25 Atrial Fib; gallbladder infection; Hypertension; Hypothyroidism; rb1 - Immunization history:: Adult Immunizations up to date. - Social history:: Smoking status: Patient/guardian denies using. - Family history:: not pertinent. - Hospitalizations: : No recent hospitalization is reported. Screenin:25 Abuse screen: Denies threats or abuse. Nutritional screening: No deficits noted. rb1 Tuberculosis screening: No symptoms or risk factors identified. Fall Risk No fall in past 12 months (0 pts). Secondary diagnosis (15 points) confused. IV access (20 points). Ambulatory Aid- None/Bed Rest/Nurse Assist (0 pts). Gait- Normal/Bed Rest/Wheelchair (0 pts) Mental Status- Overestimates/Forgets Limitations (15 pts.). Total Milner Fall Scale indicates High Risk Score (45 or more points). Fall prevention measures have been instituted. Side Rails Up X 2 Placed Close to Nursing Station 1:1 Attendant Assigned Frequent Obs/Assessments Occuring As available patient and family educated on Fall Prevention Program and Strategies. Assessment: 15:25 GI: Bowel sounds present X 4 quads. Abd is soft X 4 quads. rb1 16:22 Reassessment: Patient appears in no apparent distress at this time. No changes from rb1 previously documented assessment. 17:22 Reassessment: Patient appears in no apparent distress at this time. Patient and/or rb1 family updated on plan of care and expected duration. Pain level reassessed. Patient is alert, oriented x 3, equal unlabored respirations, skin warm/dry/pink. 20:30 Reassessment: IV ACCESS ON THE RIGHT AC INFILTRATED WHILE INFUSING IV CONTRAST. rv INSERTED ANOTHER IV CATHETER ON THE LEFT AC. CT SCAN INFORMED. FAMILY UPDATED. 20:31 Reassessment: NOTED RIGHT ARM SWELLING, FROM THE INFILTRATED IV LINE. ELEVATED AND ICE rv PACK PLACED ON TOP. 21:32 Reassessment: Patient appears in no apparent distress at this time. Patient and/or mg2 family updated on plan of care and expected duration. Pain level reassessed. Patient is alert, oriented x 3, equal unlabored respirations, skin warm/dry/pink. Vital Signs: 15:25 BP 169 / 106; Pulse 64; Resp 17; Temp 97.6; Pulse Ox 98% ; Weight 86.18 kg; Height 8 rb1 ft. 56 in. (386.08 cm); Pain 7/10; 16:22 BP 179 / 114; Pulse 71; Resp 16; Pulse Ox 98% ; rb1 17:21 BP 180 / 106; Pulse 70; Resp 17; Pulse Ox 99% ; rb1 19:00 BP 170 / 97; Pulse 81; Resp 17; Pulse Ox 97% on R/A; rv 20:00 BP 165 / 81; Pulse 79; Resp 18; Pulse Ox 97% on R/A; rv 21:00 BP 171 / 88; Pulse 76; Resp 17; Pulse Ox 96% on R/A; rv 22:00 BP 165 / 86; Pulse 81; Resp 17; Temp 98; Pulse Ox 96% on R/A; rv 15:25 Body Mass Index 5.78 (86.18 kg, 386.08 cm) rb1 ED Course: 15:24 Patient arrived in ED. rb1 15:25 Babatunde Crowley MD is Attending Physician. rn 15:25 Patient has correct armband on for positive identification. Bed in low position. Call rb1 light in reach. Side rails up X2. Pulse ox on. NIBP on. Warm blanket given. 15:25 Arm band placed on right wrist. rb1 15:31 Triage completed. rb1 15:54 Summer Menon, RN is Primary Nurse. rb1 16:25 Missed attempt(s): 24 gauge in left wrist. Bleeding controlled, band aid applied, dh3 catheter tip intact. 16:35 Missed attempt(s): 22 gauge in right antecubital area. Bleeding controlled, band aid dh3 applied, catheter tip intact. 17:20 Inserted saline lock: 20 gauge in right antecubital area, using aseptic technique. rb1 ,using aseptic technique. Inserted by Dr. Crowley with US. 19:03 David Garcia PA is PHCP. cp 19:07 Primary Nurse role handed off by Summer Menon, LINCOLN mw2 19:28 Reese Horton, LINCOLN is Primary Nurse. mg2 19:33 Urine Microscopic Only Sent. oe 20:29 Inserted saline lock: 18 gauge in left antecubital area, using aseptic technique. rv 20:33 Primary Nurse role handed off by Reese Horton, LINCOLN rv 20:33 Giorgio Amin, LINCOLN is Primary Nurse. rv 20:51 CT Abd/Pelvis - IV Contrast Only In Process Unspecified. EDMS 21:38 Prince Durand MD is Hospitalizing Provider. cp 22:12 No provider procedures requiring assistance completed. Patient admitted, IV remains in mg2 place. Administered Medications: 17:04 Not Given (Allergy): Demerol - Meperidine 12.5 mg IVP once; RASS on ADMIN: Combtv4, rb1 Very Agttd3, Agttd2, Rstlss1, AlertClm0, Drwsy-1, Lt Sdtn-2, Mod Sdtn-3, Dp Sdtn-4, UnArsble-5 21:41 Drug: Rocephin 1 grams Route: IV; Rate: calculated rate; Site: left antecubital; rv 22:14 Follow up: IV Status: Completed infusion rv 21:53 Drug: Flagyl 500 mg Volume: 100 ml; Route: IVPB; Rate: 200 ml/hr; Infused Over: 30 mg2 mins; Site: left antecubital; Outcome: 21:39 Decision to Hospitalize by Provider. cp 22:13 Admitted to Med/surg accompanied by tech, via wheelchair, room 214, with chart, Report mg2 called to LINCOLN Hernandez 22:13 Condition: stable 22:13 Instructed on the need for admit, Demonstrated understanding of instructions. 22:13 Patient left the ED. rv Addendum: 04/12/2020 13:40 Addendum: COVID-19 Result: Negative result given to RN to notify pt. Notified pt of s s negative COVID 19 swab results. Pt advised that even with a negative test result they should remain in isolation until symptom free for 3 days without medication. Pt also advised to return to the ED for worsening symptoms. Signatures: Dispatcher [employer] EDMS Babatunde Crowley MD MD rn Smirch, Shelby, RN RN ss Page, Corey, PA PA cp Summer Menon, RN RN rb1 Felipe Burgess Deanna 3 Shree Morocho 2 Reese Horton RN RN mg2 Giorgio Amin RN RN rv Corrections: (The following items were deleted from the chart) 04/08 16:06 15:25 Fall Risk None identified. rb1 rb1 16:41 16:25 Missed attempt(s): 24 gauge in left wrist. 3 3
[2020-04-08] MEDS ORDERED: CEFTRIAXONE/SWI 1gm 1 GM/10 ML SYR ONE (21:44)
[2020-04-08] MEDS ORDERED: METRONIDAZOLE 500mg IVPB 500 MG/100 ML BAG IV ONE (21:56)
[2020-04-08] MEDS ORDERED: NA CHLORIDE 0.9% 1,000 ML ONE (21:56)
--- NOTE | 2020-04-08 22:11 | P.HP ---
Certification for Inpatient Patient admitted to: Inpatient With expected LOS: >2 Midnights Practitioner: I am a practitioner with admitting privileges, knowledge of patient current condition, hospital course, and medical plan of care. Services: Services provided to patient in accordance with Admission requirements found in Title 42 Section 412.3 of the Code of Federal Regulations Patient History Date of Service: 04/08/20 Reason for admission: Abdominal pain History of Present Illness: Patient is a 89-year-old female with a past medical history of hypertension, atrial fibrillation who presented the ER complaining of an acute onset of abdominal pain. Her symptoms started 24 hr prior to presentation shortly after eating lunch. She started having right lower quadrant pain and radiated superiorly to the epigastric region. This was accompanied by nausea and vomiting. She also had 1 episode of non-bloody diarrhea. She denies any fever or chills. She tried taking some aspirin to alleviate her symptoms but this was unsuccessful. She arrived in the emergency department accompanied by son. She was hemodynamically stable. Her abdominal CT showed cholelithiasis. Allergies Antihistamines - Alkylamine Allergy (Verified 08/11/14 12:59) Shortness of breath codeine Allergy (Verified 08/11/14 12:59) Shortness of breath Latex, Natural Rubber Allergy (Verified 08/11/14 12:59) Itching Sulfa (Sulfonamide Antibiotics) Allergy (Verified 08/11/14 12:59) Nausea/Vomiting ANTI Allergy (Uncoded 02/27/15 22:41) Unknown Levothyroxine So Allergy (Uncoded 09/01/17 21:08) Unknown Metoprolol Tar Allergy (Uncoded 09/01/17 21:08) Unknown Home Medications: Levothyroxine [Synthroid*] 50 mcg PO DAILY 02/07/15 Metoprolol Succinate [Toprol Xl*] 1 tab PO BID 03/07/18 Amlodipine [Norvasc*] 10 mg PO DAILY #30 tab 03/08/18 Aspirin [Aspirin EC 81 MG] 81 mg PO DAILY #90 tablet. 03/08/18 lisinopriL [Lisinopril] 20 mg PO DAILY #30 tablet 03/08/18 - Past Medical/Surgical History Diabetic: No -: Hypothyroidism -: HTN -: Atrial fibrillation not on anticoagulation -: mumps as a child -: sinus infection -: Hysterectomy -: Appendectomy -: Partial colectomy -: Cataract surgery Psychosocial/ Personal History: She is a . She has one son who checks on her. SHe lives by herself. - Family History Sister -: Cancer Brother -: Cancer Notes: Brain Mother -: Heart disease, Other (see notes) Notes: NM - Social History Alcohol use: No CD- Drugs: No Caffeine use: Yes Physical Examination - Physical Exam General: Cooperative, Acute distress, Mild distress HEENT: Atraumatic, Normocephalic, EOMI Neck: Supple Respiratory: Clear to auscultation bilaterally, Normal air movement Cardiovascular: No edema, Normal pulses, Regular rate/rhythm, Normal S1 S2 Gastrointestinal: Normal bowel sounds, No guarding, Distended, Tenderness Musculoskeletal: No clubbing, No swelling, No contractures, No erythema, No tenderness, No warmth Integumentary: No rashes, No breakdown, No significant lesion, No tenderness/swelling, No erythema, No warmth, No cyanosis Neurological: Normal speech, Sensation intact, Normal affect - Studies Laboratory Data (last 24 hrs) 04/08/20 17:13: WBC 13.5 H, Hgb 14.4, Hct 42.5, Plt Count 367 04/08/20 16:58: Sodium 141, Potassium 3.8, BUN 16, Creatinine 1.14, Glucose 115 H, Total Bilirubin 0.4, AST 19, ALT 20, Alkaline Phosphatase 92, Lipase 103 Assessment and Plan - Problems (Diagnosis) (1) Abdominal pain Current Visit: Yes Status: Acute (2) Cholelithiasis Current Visit: Yes Status: Acute (3) Atrial fibrillation Onset Date: 03/09/18 Current Visit: No Status: Acute (4) Hypothyroidism Onset Date: 03/09/18 Current Visit: No Status: Acute - Advance Directives Does patient have a Living Will: No Does patient have a Durable POA for Healthcare: No Physician Review Additional Text: Assessment This is a 89-year-old female with a history of hypertension, hypothyroidism and atrial fibrillation not on systemic anti coagulation. She is currently admitted with right lower quadrant and epigastric abdominal pain. Workup so far showed cholelithiasis. Patient states that she is severely allergic to anesthesia and would rather not have any surgery during this admission. Abdominal pain Cholelithiasis Hypothyroidism Hypertension Atrial fibrillation Plan: Admit inpatient with telemetry Continue empiric antibiotics with Zosyn and IV fluid infusion Consult surgery to discussed additional treatment modalities if she fails above therapy Stopped anti-emetics, acid suppression therapy and pain medications
[2020-04-08] MEDS ORDERED: ONDANSETRON 4 MG/2 ML VIAL IV PRN (22:39)
[2020-04-08] MEDS ORDERED: SODIUM CHLORIDE 0.9% 10ML INJ IV PRN (22:39)
[2020-04-08 23:17] VITALS: O2SAT 97; BMI 25.2
[2020-04-08] MEDS: Ringers Lactate 1,000 ML IV SCH (23:28)
[2020-04-08] MEDS: PANTOPRAZOLE 40 MG INJ IVP SCH (23:39)
[2020-04-09] MEDS ORDERED: PIPER/TAZO/NS 3.375gm 3.375 GM/100 ML BAG ONE (00:14)
[2020-04-09] MEDS: PIPER/TAZO/NS 3.375gm 3.375 GM/100 ML BAG IVPB SCH ×3 (00:21→17:46)
[2020-04-09] MEDS: AMLODIPINE 10 MG TAB PO SCH ×2 (03:40→03:43)
[2020-04-09] MEDS: METOPROLOL XL 50 MG TAB PO SCH ×3 (03:42→20:06)
[2020-04-09] MEDS ORDERED: AMLODIPINE 10 MG TAB PO ONE (04:00)
[2020-04-09] MEDS: LEVOTHYROXINE SOD 0.05 MG TABLET PO SCH (09:24)
[2020-04-09] MEDS: PANTOPRAZOLE 40 MG INJ IVP SCH ×2 (09:24→20:05)
[2020-04-09] MEDS ORDERED: PNEUMOCOCCAL VACCINE 0.5 ML IMVAC ONE (10:00)
--- NOTE | 2020-04-09 10:13 | RAD REPORT ---
EXAM DESCRIPTION: US - Abdomen Exam Limited - 04/09/2020 10:05 am CLINICAL HISTORY: RUQ pain COMPARISON: Abdomen Pelvis W Contrast dated 04/08/2020 FINDINGS: A 10 millimeter gallstone is present within the lumen of the gallbladder. No stone is seen fixed near the neck. There is no wall thickening or pericholecystic fluid. No common duct stone or biliary tree dilatation identified. IMPRESSION: A single 10 mm size gallstone was identifiable matching the CT study. No other gallbladd er or biliary tree finding.
[2020-04-09] MEDS: Ringers Lactate 1,000 ML IV SCH ×2 (13:04→18:39)
--- NOTE | 2020-04-09 19:27 | P.CNS ---
Date of Consult: 04/09/20 PC: This 89-year-old female presents emergency room with severe abdominal pain for diagnosis and treatment. HPC: Patient was at home, said sudden onset of abdominal pain common duct called 911 to be brought into the hospital. On workup was found have cholelithiasis. PMH: Atrial fibrillation, PSHx: Numerous previous surgeries SOC: Numerous allergies that are listed, takes aspirin SYS REVIEW: States she has been in good health at home. This is the 1st episode of this type of pain that she has had. Normally she is able take care of herself and is very independent. No cough, wheeze, shortness of breath. No chest pain or palpitations. Denies any urinary complaints. No bowel habits changes O/E awake alert vital signs are stable. Very comfortable at the moment HEENT: Not icteric Chest: Air entry equal bilaterally ABD: Soft nontender no guarding or rebound LOCO: Intact DATA: Elevated white cell count when she came in, CT scan and ultrasound documented gallstones IMPRESSION: Biliary colic which appears to have resolved PLAN: This patient is feeling much better today. She is 81 years of age and does not want have surgery unless it is absolutely emergent. At the current time she is pain-free, tolerating a diet. I have advised her of the risks of an acute episode, the possibility of recurrence, the need for more complicated procedures. She is comfortable with the information and is anticipating discharge home soon
[2020-04-10] MEDS: Ringers Lactate 1,000 ML IV SCH ×2 (00:27→04:39)
[2020-04-10] MEDS: PIPER/TAZO/NS 3.375gm 3.375 GM/100 ML BAG IVPB SCH ×2 (00:28→08:51)
[2020-04-10 04:53] VITALS: BP 183/67
[2020-04-10] MEDS: AMLODIPINE 10 MG TAB PO SCH (05:52)
[2020-04-10 06:22] LABS: Absolute Lymphocytes (CBC) 1.3 K/uL (0.7-4.9); Basophils % 0.4 % (0-1.3); Hematocrit 38.8 % (36.0-45.0); Lymphocytes % 15.5 % (15.3-44.8); MPV 7.3 fL (7.6-11.3); RBC Red Blood Cell Count 4.38 M/uL (3.86-4.86)
--- NOTE | 2020-04-10 06:39 | P.PN ---
Subjective Date of Service: 04/09/20 patient is feeling better. However, family states she is still having pain. They state patient does have some dementia. Patient was able answer most of my questions appropriately. She is not really wanting to have any kind of surgery a lesser pain continues. We will go ahead and advance her diet and see how she tolerates that and wait for General surgery input. Review of Systems 10-point ROS is otherwise unremarkable Physical Examination - Vital Signs Temperature: 97 F Blood Pressure: 183/67 Pulse: 53 Respirations: 16 Pulse Ox (%): 97 - Physical Exam General: Alert, In no apparent distress, Oriented x3 Cardiovascular: Regular rate/rhythm, Normal S1 S2 Gastrointestinal: Normal bowel sounds, Soft and benign, Non-distended, Tenderness ( Minimal epigastric and right upper quadrant tenderness) Musculoskeletal: No clubbing, No swelling, No tenderness Integumentary: No rashes Neurological: Normal speech, Normal strength at 5/5 x4 extr, Normal tone, Sensation intact, Cranial nerves 3-12 intact, Normal affect Lymphatics: No axilla or inguinal lymphadenopathy - Studies Medications List Reviewed: Yes Assessment & Plan - Problems (Diagnosis) (1) Cholelithiasis Current Visit: Yes Status: Acute (2) Abdominal pain Current Visit: Yes Status: Acute (3) Atrial fibrillation Onset Date: 03/09/18 Current Visit: No Status: Acute (4) Hypothyroidism Onset Date: 03/09/18 Current Visit: No Status: Acute - Plan Plan: 1. Monitor LFTs 2. Pain control 3. IV hydration 4. Advanced diet as tolerated 5. Surgery consultation pending 6. If pain continues and she may need surgical intervention 7. We will start medications for atrial fibrillation 8. GI and DVT prophylaxis Discharge Plan: Home Plan to discharge in: Greater than 2 days - Advance Directives Does patient have a Living Will: No Does patient have a Durable POA for Healthcare: No Critical Care: No Time Spent Managing PTS Care (In Minutes): 45
[2020-04-10] MEDS ORDERED: lisinopriL 20 MG TAB PO ONE (06:40)
[2020-04-10 06:49] LABS: Albumin 3.2 g/dL (3.4-5.0); Bilirubin Total 0.6 mg/dL (0.2-1.0); Potassium 3.4 mmol/L (3.5-5.1); Protein, Total 6.7 g/dL (6.4-8.2)
--- NOTE | 2020-04-10 07:47 | P.DS ---
Admission Date: 04/08/20 Discharge Date: 04/10/20 Primary Care Provider: Dr. Greenberg Disposition: ROUTINE DISCHARGE Discharge Condition: GOOD Reason for Admission: Abdominal pain Consultations: Surgery-Dr. Perla Procedures: CT Scan: FINDINGS: The lung bases are clear. Small gallstone is present in the gallbladder. Mild fatty liver is seen. Mild fluid is seen around the liver edge. Mild fluid is also noted around the spleen. Spleen is normal in size. Small hiatal hernia. The pancreas, adrenal glands and kidneys are within normal limits. No focal mass or hydronephrosis. No bowel obstruction, free air, free fluid or abscess. Mild sigmoid diverticulosis coli without diverticulitis. The appendix is not identified as a discrete structure, however, no secondary findings of appendicitis are identified. No evidence of significant lymphadenopathy. Mild lumbar degenerative changes. IMPRESSION: Cholelithiasis. Mild fatty liver with mild fluid around the liver spleen. Small hiatal hernia. Sigmoid diverticulosis coli without diverticulitis. ABUS: FINDINGS: A 10 millimeter gallstone is present within the lumen of the gallbladder. No stone is seen fixed near the neck. There is no wall thickening or pericholecystic fluid. No common duct stone or biliary tree dilatation identified. IMPRESSION: A single 10 mm size gallstone was identifiable matching the CT study. No other gallbladder or biliary tree finding. Medical Problem List: Abdominal pain secondary to Cholelithiasis GERD with small hiatal hernia Mild Fatty Liver Atrial Fibrillation Hypothyroidism Hypertension Brief History of Present Illness: 89 yo CF with history of HTN, Hypothyroidism, and atrial fibrillation. She presented with acute abdominal pain after eating lunch. It started to the right quadrant and radiated to the epigastric pain. Also had some nausea and vomiting. Patient also had an episode of diarrhea. CT scan revealed gallstones, mild fatty liver and hiatal hernia. The patient was admitted for further evaluation and treatment. Hospital Course: Patient presented with nausea, vomiting and abdominal pain. Pain was mainly to the right quadrant and radiated to the epigastric region. The patient had a CT scan showing cholelithiasis, mild fatty liver, and small hiatal hernia. The patient was admitted for further evaluation. Patient was seen and evaluated by surgery. Abdominal ultrasound showed no cholecystitis. Cholelithiasis was noted. Her diet was advanced. She was able tolerate a diet. No significant abdominal pain, nausea, and vomiting at discharge. Surgery recommended no surgical intervention. At discharge patient will continue with a heart healthy diet. Education on cholelithiasis provided. Recommend follow up with surgery in 2-4 weeks to follow up this hospitalization. If symptoms persist in the future patient may require outpatient cholecystectomy. Please no patient refused to have COVID test done. Patient with GERD and small hiatal hernia. Education on GERD provided. Continue heart healthy diet. Patient may benefit with Prilosec over the counter if needed. Patient may benefit with GI evaluation as an outpatient if this persists. Patient with mild fatty liver. Education on fatty liver provided. Patient may benefit with GI evaluation as an outpatient to further address and monitor. Patient with atrial fibrillation/hypertension. This appears stable. Patient not on chronic anti coagulation therapy. At discharge patient will continue with her hypertensive medications. Recommend to maintain blood pressure less 150/80. Further adjustment can be done by her PCP. Patient with hypothyroidism. At discharge she may continue with her medication. Recommend follow up with her PCP to further monitor and address. Vital Signs/Physical Exam: Temp Pulse Resp BP Pulse Ox 97 F 57 16 183/67 H 97 04/10/20 06:39 04/10/20 07:24 04/10/20 06:39 04/10/20 07:24 04/10/20 06:39 General: Alert, In no apparent distress, Oriented x3, Cooperative HEENT: Atraumatic Neck: Supple Respiratory: Clear to auscultation bilaterally, Normal air movement Cardiovascular: Normal pulses, Regular rate/rhythm Gastrointestinal: Normal bowel sounds, No tenderness, No masses, No rebound, No guarding Musculoskeletal: No erythema, No tenderness, No warmth Integumentary: No tenderness/swelling, No erythema, No warmth, No cyanosis Neurological: Normal speech, Normal strength at 5/5 x4 extr, Normal tone, Normal affect Laboratory Data at Discharge: WBC 8.2 K/uL (4.3-10.9) D 04/10/20 05:51 Hgb 13.2 g/dL (12.0-15.0) 04/10/20 05:51 Hct 38.8 % (36.0-45.0) 04/10/20 05:51 Plt Count 367 K/uL (152-406) 04/10/20 05:51 Sodium 141 mmol/L (136-145) 04/10/20 05:51 Potassium 3.4 mmol/L (3.5-5.1) L 04/10/20 05:51 BUN 10 mg/dL (7-18) 04/10/20 05:51 Creatinine 0.97 mg/dL (0.55-1.3) 04/10/20 05:51 Glucose 87 mg/dL (74-106) 04/10/20 05:51 Total Bilirubin 0.6 mg/dL (0.2-1.0) 04/10/20 05:51 AST 14 U/L (15-37) L 04/10/20 05:51 ALT 16 U/L (12-78) 04/10/20 05:51 Alkaline Phosphatase 69 U/L (45-117) 04/10/20 05:51 Lipase 98 U/L (73-393) 04/10/20 05:51 Home Medications: lisinopriL [Lisinopril] 20 mg PO DAILY #30 tablet 03/08/18 Patient Discharge Instructions: 1. Recommend follow up with PCP in 1 week to follow up this hospitalization. 2. Patient presented with nausea, vomiting and abdominal pain. Pain was mainly to the right quadrant and radiated to the epigastric region. The patient had a CT scan showing cholelithiasis, mild fatty liver, and small hiatal hernia. The patient was admitted for further evaluation. Patient was seen and evaluated by surgery. Abdominal ultrasound showed no cholecystitis. Cholelithiasis was noted. Her diet was advanced. She was able tolerate a diet. No significant abdominal pain, nausea, and vomiting at discharge. Surgery recommended no surgical intervention. At discharge patient will continue with a heart healthy diet. Education on cholelithiasis provided. Recommend follow up with surgery in 2-4 weeks to follow up this hospitalization. If symptoms persist in the future patient may require outpatient cholecystectomy. 3. Patient with GERD and small hiatal hernia. Education on GERD provided. Continue heart healthy diet. Patient may benefit with Prilosec over the counter if needed. Patient may benefit with GI evaluation as an outpatient if this persists. 4. Patient with mild fatty liver. Education on fatty liver provided. Patient may benefit with GI evaluation as an outpatient to further address and monitor. 5. Patient with atrial fibrillation/hypertension. This appears stable. Patient not on chronic anti coagulation therapy. At discharge patient will continue with her hypertensive medications. Recommend to maintain blood pressure less 150/80. Further adjustment can be done by her PCP. 6. Patient with hypothyroidism. At discharge she may continue with her medication. Recommend follow up with her PCP to further monitor and address. Diet: AHA Activity: Ad jamil Followup: Praveen Greenberg MD [ACTIVE - CAN ADMIT] - Time spent managing pt's care (in minutes): 55
[2020-04-10] MEDS: LEVOTHYROXINE SOD 0.05 MG TABLET PO SCH (08:50)
[2020-04-10] MEDS: PANTOPRAZOLE 40 MG INJ IVP SCH (08:51)
[2020-04-10] MEDS ORDERED: lisinopriL 20 MG TAB PO SCH ×2 (09:00)
[2020-04-10 10:42] VITALS: TEMP 97.2
== END 2020-04-10 09:56 | disposition home or self-care (01) | DRG 446 ==
LOC: ER 15:21 → ERHOLD 21:59 → 2ND 22:21
PROVIDERS: ADMIT Internal Medicine; ATTEND Family Medicine
DX: K80.20 Calculus of gallbladder without cholecystitis without obstruction (principal); E03.9 Hypothyroidism, unspecified; I10 Essential (primary) hypertension; F03.90 Unspecified dementia, unspecified severity, without behavioral disturbance, psychotic disturbance, mood disturbance, and anxiety; K76.0 Fatty (change of) liver, not elsewhere classified; K21.9 Gastro-esophageal reflux disease without esophagitis; K44.9 Diaphragmatic hernia without obstruction or gangrene; D72.829 Elevated white blood cell count, unspecified; I48.91 Unspecified atrial fibrillation; Z88.5 Allergy status to narcotic agent; Z88.1 Allergy status to other antibiotic agents; Z88.8 Allergy status to other drugs, medicaments and biological substances; Z79.899 Other long term (current) drug therapy; Z20.828 Contact with and (suspected) exposure to other viral communicable diseases; Z91.040 Latex allergy status; Z79.890 Hormone replacement therapy; Z79.82 Long term (current) use of aspirin; Z90.710 Acquired absence of both cervix and uterus; Z90.49 Acquired absence of other specified parts of digestive tract; Z60.2 Problems related to living alone
CPT/HCPCS: 36415; 74177; 76705; 80048; 80053; 80076; 81003; 81015; 82947; 83605; 83690; 84145; 85025; 96365; 96375; 99285; C9113; J0696; J2175; J2405; J2543; J7030; J7120; Q9967

== ENCOUNTER 2020-04-14 14:55 | Observation (INO) | payer OTHER ==
--- OUTSIDE RECORDS SUMMARY | 2020-04-14 15:00 | XMS REPORT | Continuity of Care Document ---
:1930 Author Organization [facility] t Address [address] [place] [address] Care Team Providers Name Role Phone Susan Biswas MD Attending Clinician Problems Condition Condition Condition Status Onset Resolution Last Treating Co mments Source Name Details Category Date Date Treatment Clinician Date Essential Essential Diagnosis Active [facility]primary[facility] (primary[facility] Luke s - hypertensi hypertensi Me moria on on l [facility] Osteopenia Osteopenia Diagnosis [facility] - unspecifie unspecifie Me moria d location d location l [facility] Acquired Acquired Diagnosis Active [facility] hypothyroi hypothyroi Jessica kes - dism dism [facility] Allergies, Adverse Reactions, Alerts Allergy Allergy Status Severity Reaction(s) Onset Inactive Treating Comm ents Source Name Type Date Date Clinician Sulfa Adverse Active digestive [facility] Reaction problems [facility] Medications Ordered Filled Start Stop Current Ordering Indication Dosage Frequency Signature Comments Components Source Medication Medication Date Date Medication? Clinician (SIG) Name Name Metoprolol Metoprolol Yes Keith [address] [facility] Succinate Succinate 1-25 Maddy Luke s - ER ER 00:00: [facility]oria 00 l [facility] Amlodipine Amlodipine Yes Keith [address] [facility] Besylate Besylate Maddy [facility] Levothyroxi Levothyroxi Yes Keith [address] [facility] ne Sodium ne Sodium Maddy on an Stef es - empty [facility]oria stomach in l the [facility] Lisinopril Lisinopril Yes Keith [address] [facility] Maddy [facility] Procedures This patient has no known procedures. Encounters Start End Encounter Admission Attending Care Care Encounter Source Date/Time Date/Time Type Type Clinicians Facility Department ID 2019-07-28 2019-07-28 Office SIMONE Biswas [id number] 13:42:08 14:29:42 Visit [facility] [id number] Surgical [id number] Specialti [id number] [place] 2018-08-25 2018-08-25 [facility] [id number] [facility] 09:15:00 09:15:00 [facility] 2018-08-11 2018-08-11 [facility] [id number] [facility] 09:45:00 09:45:00 [facility] 2018-08-03 2018-08-03 [facility] [id number] [facility] 11:00:00 11:00:00 [facility] 2018-07-09 2018-07-09 [facility] [id number] 16:56:00 16:56:00 [facility] 2018-07-09 2018-07-09 [facility] [id number] [address] 11:15:00 11:15:00 [facility] Clinics Results This patient has no known results.
[2020-04-14 15:48] LABS: Absolute Lymphocytes (CBC) 1.2 K/uL (0.7-4.9); Basophils % 0.4 % (0-1.3); Hematocrit 40.3 % (36.0-45.0); Lymphocytes % 12.9 % (15.3-44.8); MPV 7.2 fL (7.6-11.3); RBC Red Blood Cell Count 4.52 M/uL (3.86-4.86)
[2020-04-14] MEDS ORDERED: NA CHLORIDE 0.9% 1,000 ML ONE (16:02)
[2020-04-14] MEDS ORDERED: KETOROLAC 30 MG/ML INJ ONE (16:09)
[2020-04-14] MEDS ORDERED: DIAZEPAM 10 MG/2 ML INJ SYRINGE ONE (16:09)
[2020-04-14 16:28] LABS: Albumin 3.2 g/dL (3.4-5.0); Bilirubin Direct 0.1 mg/dL (0-0.2); Bilirubin Total 0.3 mg/dL (0.2-1.0); Magnesium 2.3 mg/dL (1.8-2.4); Potassium 3.4 mmol/L (3.5-5.1); Protein, Total 6.9 g/dL (6.4-8.2); Troponin (Emerg Dept Use Only) 0.23 ng/mL (0.0-0.045)
[2020-04-14 16:50] LABS: Protime INR 0.94
--- NOTE | 2020-04-14 17:20 | RAD REPORT ---
EXAM DESCRIPTION: Kayla Single View04/14/2020 3:53 pm CLINICAL HISTORY: Abdomen pain COMPARISON: 2017 FINDINGS: The lungs appear clear of acute infiltrate. The heart is mildly enlarged IMPRESSION: No acute abnormalities displayed
--- NOTE | 2020-04-14 17:50 | EDPHYS ---
Physician Documentation [facility] Name: Ольга Altman Age: 89 yrs Sex: Female : 1930 Arrival Date: 04/14/2020 Time: 15:00 Bed 2 Private MD: ED Physician Chidi Piña HPI: 04/14 15:42 This 89 yrs old Female presents to ER via EMS with complaints of Abdominal snw Pain. 15:42 Onset: The symptoms/episode began/occurred acutely. The symptoms do not radiate. snw Associated signs and symptoms: Pertinent positives: nausea. The symptoms are described as achy, crampy, steady. Severity of pain: At its worst the pain was moderate in the emergency department the pain is unchanged. The patient has experienced similar episodes in the past. The patient has been recently seen by a physician: The patient has been recently been admitted at [facility], was discharged last week. Historical: - Allergies: 15:04 Codeine; iw 15:04 Demerol; iw 15:04 Fentanyl; iw 15:04 Levothyroxine Sodium; iw 15:04 Metoprolol Tartrate; iw 15:04 Sulfa (Sulfonamide Antibiotics); iw - PMHx: 15:04 Atrial Fib; gallbladder infection; Hypertension; Hypothyroidism; iw - Immunization history:: Adult Immunizations up to date. - Social history:: Smoking status: Patient denies any tobacco usage or history of. ROS: 15:41 Constitutional: Negative for fever, chills, and weight loss, Eyes: Negative for injury, snw pain, redness, and discharge, ENT: Negative for injury, pain, and discharge, Neck: Negative for injury, pain, and swelling, Cardiovascular: Negative for chest pain, palpitations, and edema, Respiratory: Negative for shortness of breath, cough, wheezing, and pleuritic chest pain, Back: Negative for injury and pain, : Negative for injury, bleeding, discharge, and swelling, MS/Extremity: Negative for injury and deformity, Skin: Negative for injury, rash, and discoloration, Neuro: Negative for headache, weakness, numbness, tingling, and seizure, Psych: Negative for depression, anxiety, suicide ideation, homicidal ideation, and hallucinations. 15:41 Abdomen/GI: Positive for abdominal pain, nausea. Exam: 15:40 Constitutional: This is a well developed, well nourished patient who is awake, alert, snw and in no acute distress. Head/Face: Normocephalic, atraumatic. Eyes: Pupils equal round and reactive to light, extra-ocular motions intact. Lids and lashes normal. Conjunctiva and sclera are non-icteric and not injected. Cornea within normal limits. Periorbital areas with no swelling, redness, or edema. ENT: Nares patent. No nasal discharge, no septal abnormalities noted. Tympanic membranes are normal and external auditory canals are clear. Oropharynx with no redness, swelling, or masses, exudates, or evidence of obstruction, uvula midline. Mucous membranes moist. Neck: Trachea midline, no thyromegaly or masses palpated, and no cervical lymphadenopathy. Supple, full range of motion without nuchal rigidity, or vertebral point tenderness. No Meningismus. Chest/axilla: Normal chest wall appearance and motion. Nontender with no deformity. No lesions are appreciated. Cardiovascular: Regular rate and rhythm with a normal S1 and S2. No gallops, murmurs, or rubs. Normal PMI, no JVD. No pulse deficits. Respiratory: Lungs have equal breath sounds bilaterally, clear to auscultation and percussion. No rales, rhonchi or wheezes noted. No increased work of breathing, no retractions or nasal flaring. Back: No spinal tenderness. No costovertebral tenderness. Full range of motion. Skin: Warm, dry with normal turgor. Normal color with no rashes, no lesions, and no evidence of cellulitis. MS/ Extremity: Pulses equal, no cyanosis. Neurovascular intact. Full, normal range of motion. Neuro: Awake and alert, GCS 15, oriented to person, place, time, and situation. Cranial nerves II-XII grossly intact. Motor strength 5/5 in all extremities. Sensory grossly intact. Cerebellar exam normal. Normal gait. Psych: Awake, alert, with orientation to person, place and time. Behavior, mood, and affect are within normal limits. 15:40 Abdomen/GI: Inspection: distension, that is mild, Bowel sounds: high pitched, all quadrants. Palpation: moderate abdominal tenderness, in all quadrants, Indicators: McBurney's point is tender, De Jesus's sign is positive. 16:35 ECG was reviewed by the Attending Physician. snw 16:35 Special observations: Pain improved, remains mildly hypertensive, denies nausea at this time. Pt states she is bored and wants to read her book. Book taken to pt and she requested lying on side, assisted to side and pt states she is just going to go to sleep now.. Vital Signs: 15:01 BP 159 / 101; Pulse 79; Resp 16; Temp 98.0; Pulse Ox 97% on R/A; iw 16:15 BP 190 / 73; Pulse 78; Resp 18; Pulse Ox 97% on R/A; em 17:04 BP 180 / 83; Pulse 73; Resp 18; Pulse Ox 97% on R/A; em 18:04 BP 192 / 64; Pulse 69; Resp 14; Pulse Ox 97% on R/A; Pain 0/10; em 19:17 BP 207 / 92; Pulse 66; Resp 18; Temp 98; Pulse Ox 97% on R/A; mg2 19:46 BP 187 / 78; Pulse 66; Resp 18; Pulse Ox 96% on R/A; mg2 MDM: 15:37 Patient medically screened. snw 17:47 Data reviewed: vital signs, nurses notes. Data interpreted: Pulse oximetry: on room air snw is 97 %. Interpretation: normal. Counseling: I had a detailed discussion with the patient and/or guardian regarding: the historical points, exam findings, and any diagnostic results supporting the discharge/admit diagnosis, lab results, radiology results, the need for further work-up and treatment in the hospital. Physician consultation: Darwin Jennings DO was called at 17:47, was contacted at 17:48, regarding admission, to the telemetry unit. Per Chuy Villasenor. 04/14 15:27 Order name: Basic Metabolic Panel; Complete Time: 17:01 snw 04/14 15:27 Order name: CBC with Diff; Complete Time: 16:19 snw 04/14 15:27 Order name: LFT's; Complete Time: 17: snw 04/14 15:27 Order name: Magnesium; Complete Time: 17: snw 04/14 15:27 Order name: NT PRO-BNP; Complete Time: 17:01 snw 04/14 15:27 Order name: PT-INR; Complete Time: 17: snw 04/14 15:27 Order name: Troponin (emerg Dept Use Only); Complete Time: 17:01 snw 04/14 15:27 Order name: XRAY Chest (1 view); Complete Time: 17:21 snw 04/14 15:27 Order name: Lipase; Complete Time: 17:01 snw 04/14 15:27 Order name: EKG; Complete Time: 15:28 snw 04/14 15:27 Order name: Cardiac monitoring; Complete Time: 15:46 snw 04/14 15:27 Order name: EKG - Nurse/Tech; Complete Time: 16:41 snw 04/14 15:27 Order name: IV Saline Lock; Complete Time: 15:45 snw 04/14 15:27 Order name: Labs collected and sent; Complete Time: 16:41 snw 04/14 15:27 Order name: O2 Per Protocol; Complete Time: 15:45 snw 04/14 15:27 Order name: O2 Sat Monitoring; Complete Time: 15:45 snw EC:35 Rate is 72 beats/min. Rhythm is regular. LA interval is prolonged. QRS interval is snw normal. T waves are Inverted in lead I. No ST changes noted. Clinical impression: NSR w/ Non-specific ST/T Changes. Administered Medications: 16:08 Drug: TORadol - Ketorolac 15 mg Route: IVP; Site: left wrist; em 16:40 Follow up: Response: No adverse reaction; Marked relief of symptoms; Pain is decreased em 16:09 Drug: NS 0.9% 1000 ml Route: IV; Rate: 75 ml/hr; Site: left wrist; em 19:46 Follow up: Response: No adverse reaction; IV Status: Infusion continued upon admission mg2 16:10 Not Given (Other Intervention Used): Valium 2 mg IVP once em 16:10 Drug: Valium 1 mg Route: IVP; Site: left wrist; em 16:41 Follow up: Response: No adverse reaction; Marked relief of symptoms; Pain is decreased; em RASS: Alert and Calm (0) 19:31 Drug: Metoprolol 25 mg Route: PO; mg2 19:46 Follow up: Response: No adverse reaction mg2 Disposition: 04/14/20 17:49 Hospitalization ordered by Darwin Jennings for Observation. Preliminary diagnosis are Nausea, Generalized abdominal pain, Elevated Troponin. - Bed requested for Telemetry/MedSurg (observation). - Status is Observation. rv - Condition is Stable. - Problem is an acute exacerbation. - Symptoms have improved. Addendum: 04/16/2020 14:36 Co-signature as Attending Physician, Chidi Piña MD I agree with the assessment and k dr plan of care. Signatures: Dispatcher [employer] EDRI Chidi Piña MD MD kdr Waters, Shelly, TEXTILE DESIGNER-C TEXTILE DESIGNER-Csnw Khanh Ward, RN RN em Cassidy Reyez, LINCOLN STARK Mirlande Hughes, LINCOLN RN cg Reese Horton, RN RN mg2 Giorgio Amin, RN RN rv Corrections: (The following items were deleted from the chart) 04/14 18:56 17:49 Hospitalization Ordered by Darwin Jennings DO for Observation. Preliminary cg diagnosis is Nausea; Generalized abdominal pain; Elevated Troponin. Bed requested for Telemetry/MedSurg (observation). Status is Observation. Condition is Stable. Problem is an acute exacerbation. Symptoms have improved. snw 20:01 18:56 04/14/2020 17:49 Hospitalization Ordered by Darwin Jennings DO for Observation. rv Preliminary diagnosis is Nausea; Generalized abdominal pain; Elevated Troponin. Bed requested for Telemetry/MedSurg (observation). Status is Observation. Condition is Stable. Problem is an acute exacerbation. Symptoms have improved. cg
--- NOTE | 2020-04-14 17:50 | ER ---
Nurse's Notes [facility] Name: Ольга Altman Age: 89 yrs Sex: Female : 1930 Arrival Date: 04/14/2020 Time: 15:00 Bed 2 Private MD: Diagnosis: Nausea;Generalized abdominal pain;Elevated Troponin Presentation: 04/14 15:01 Chief complaint: Patient states: was recently seen for abd pain and diagnosed with iw renal calculi, pt still having RUQ pain, +nausea, no vomiting or diarrhea, denies urinary s/s. Coronavirus screen: At this time, the client does not indicate any symptoms associated with coronavirus-19. Ebola Screen: Patient negative for fever greater than or equal to 101.5 degrees Fahrenheit, and additional compatible Ebola Virus Disease symptoms Patient denies exposure to infectious person. Patient denies travel to an Ebola-affected area in the 21 days before illness onset. No symptoms or risks identified at this time. Initial Sepsis Screen: Does the patient meet any 2 criteria? No. Patient's initial sepsis screen is negative. Does the patient have a suspected source of infection? No. Patient's initial sepsis screen is negative. Risk Assessment: Do you want to hurt yourself or someone else? Patient reports no desire to harm self or others. Onset of symptoms was April 08, 2020. 15:01 Method Of Arrival: EMS: [facility] iw 15:01 Acuity: KENNEY 3 iw Historical: - Allergies: 15:04 Codeine; iw 15:04 Demerol; iw 15:04 Fentanyl; iw 15:04 Levothyroxine Sodium; iw 15:04 Metoprolol Tartrate; iw 15:04 Sulfa (Sulfonamide Antibiotics); iw - PMHx: 15:04 Atrial Fib; gallbladder infection; Hypertension; Hypothyroidism; iw - Immunization history:: Adult Immunizations up to date. - Social history:: Smoking status: Patient denies any tobacco usage or history of. Screenin:21 Abuse screen: Denies threats or abuse. Nutritional screening: No deficits noted. em Tuberculosis screening: No symptoms or risk factors identified. Fall Risk None identified. Assessment: 15:30 General: Appears in no apparent distress. uncomfortable, Behavior is calm, cooperative, em appropriate for age. Pain: Complains of pain in right upper quadrant Pain currently is 4 out of 10 on a pain scale. Neuro: Level of Consciousness is awake, alert, obeys commands, Oriented to person, place, time, situation, Appropriate for age. Cardiovascular: Capillary refill < 3 seconds Patient's skin is warm and dry. Respiratory: Airway is patent Respiratory effort is even, unlabored, Respiratory pattern is regular, symmetrical. GI: Abdomen is flat, Bowel sounds present X 4 quads. Abd is soft X 4 quads Reports nausea, Patient currently denies vomiting. Derm: Skin is intact, is fragile, is thin, Skin is pink, warm \T\ dry. Musculoskeletal: Capillary refill < 3 seconds, Range of motion: intact in all extremities. 16:24 Reassessment: lab at bedside to recollect blue top. em 17:36 Reassessment: Patient appears in no apparent distress at this time. Patient and/or em family updated on plan of care and expected duration. Pain level reassessed. Patient is alert, oriented x 3, equal unlabored respirations, skin warm/dry/pink. Patient denies pain at this time. Patient states feeling better. Patient states symptoms have improved. 17:38 Reassessment: SETH Pastor at bedside discussing POC. em 18:05 Reassessment: Patient appears in no apparent distress at this time. Patient and/or em family updated on plan of care and expected duration. Pain level reassessed. Patient is alert, oriented x 3, equal unlabored respirations, skin warm/dry/pink. Vital Signs: 15:01 BP 159 / 101; Pulse 79; Resp 16; Temp 98.0; Pulse Ox 97% on R/A; iw 16:15 BP 190 / 73; Pulse 78; Resp 18; Pulse Ox 97% on R/A; em 17:04 BP 180 / 83; Pulse 73; Resp 18; Pulse Ox 97% on R/A; em 18:04 BP 192 / 64; Pulse 69; Resp 14; Pulse Ox 97% on R/A; Pain 0/10; em 19:17 BP 207 / 92; Pulse 66; Resp 18; Temp 98; Pulse Ox 97% on R/A; mg2 19:46 BP 187 / 78; Pulse 66; Resp 18; Pulse Ox 96% on R/A; mg2 ED Course: 15:00 Patient arrived in ED. iw 15:04 Triage completed. iw 15:06 Arm band placed on. iw 15:09 Darby Harvey FNP-C is PHCP. snw 15:09 Chidi Piña MD is Attending Physician. snw 15:20 Khanh Ward, RN is Primary Nurse. em 15:21 Patient has correct armband on for positive identification. Placed in gown. Bed in low em position. Call light in reach. 15:36 Initial lab(s) drawn, by me, sent to lab. Missed attempt(s): 24 gauge in right wrist. mt 15:45 Inserted saline lock: 24 gauge in left wrist, using aseptic technique. em 15:53 XRAY Chest (1 view) In Process Unspecified. EDMS 17:48 Darwin Jennings DO is Hospitalizing Provider. snw 19:32 Inserted saline lock: 20 gauge in left antecubital area, using aseptic technique. rv 19:53 No provider procedures requiring assistance completed. Patient admitted, IV remains in mg2 place. Administered Medications: 16:08 Drug: TORadol - Ketorolac 15 mg Route: IVP; Site: left wrist; em 16:40 Follow up: Response: No adverse reaction; Marked relief of symptoms; Pain is decreased em 16:09 Drug: NS 0.9% 1000 ml Route: IV; Rate: 75 ml/hr; Site: left wrist; em 19:46 Follow up: Response: No adverse reaction; IV Status: Infusion continued upon admission mg2 16:10 Not Given (Other Intervention Used): Valium 2 mg IVP once em 16:10 Drug: Valium 1 mg Route: IVP; Site: left wrist; em 16:41 Follow up: Response: No adverse reaction; Marked relief of symptoms; Pain is decreased; em RASS: Alert and Calm (0) 19:31 Drug: Metoprolol 25 mg Route: PO; mg2 19:46 Follow up: Response: No adverse reaction mg2 Outcome: 17:49 Decision to Hospitalize by Provider. snw 19:53 Admitted to Med/surg accompanied by nurse, via stretcher, room 221, with chart, Report mg2 called to LINCOLN Kathleen 19:53 Condition: stable 19:53 Instructed on the need for admit, Demonstrated understanding of instructions. 20:01 Patient left the ED. rv Signatures: Dispatcher [employer] EDAK Darby Harvey FNP-C SPINNING ROOM WORKER-Csnw Khanh Ward, RN RN em Cassidy Reyez, LINCOLN RN Sharron Giordano ny Reese Horton RN RN mg2 Giorgio Amin RN RN rv Corrections: (The following items were deleted from the chart) 17:38 17:04 BP 180 / 83; Pulse 73bpm; Resp 18bpm; Pulse Ox 14% RA; em em
--- NOTE | 2020-04-14 18:46 | P.HP ---
Certification for Inpatient Patient admitted to: Observation With expected LOS: <2 Midnights Patient will require the following post-hospital care: None Practitioner: I am a practitioner with admitting privileges, knowledge of patient current condition, hospital course, and medical plan of care. Services: Services provided to patient in accordance with Admission requirements found in Title 42 Section 412.3 of the Code of Federal Regulations <Reynaldo Villasenor - Last Filed: 04/14/20 18:41> Patient admitted to: Observation With expected LOS: <2 Midnights <KvngdaliaCaryl raphaelDarwin - Last Filed: 04/16/20 15:33> Patient History Date of Service: 04/14/20 Primary Care Provider: Dr. Greenberg Reason for admission: NSTEMI History of Present Illness: 89-year-old female with history of paroxysmal atrial fibrillation on anticoagulation therapy, hypertension, abdominal pain with history of cholelithiasis, GERD, hypothyroidism presents emergency department for epigastric and right upper quadrant abdominal pain. Patient presents to the ER approximately 1 week ago for similar symptoms and was admitted with consult for general surgery. Patient did well throughout her hospitalization popliteal surgery recommended outpatient cholecystectomy if necessary and recommendation for outpatient GI followup. The patient's pain is similar, located in the right upper quadrant but described as pressure-like, pain began while patient was standing in the kitchen this morning and lasted for couple of hr until she came in the emergency department. Patient denied any associated symptoms such as shortness of breath, nausea, diaphoresis. Patient's workup in the emergency department was significant for elevated troponin at 0.23, elevated BNP 823, potassium 3.4. Patient has never had a stress test or heart catheterization, at echocardiogram approximately 5 years ago which was normal. Due to elevated troponin ED provider wishes to admit patient for further evaluation and management. With the patient in the emergency department she is awake, alert, oriented x3. Patient was mild epigastric/right upper quadrant abdominal pain and tenderness. - Past Medical/Surgical History Diabetic: No -: Hypothyroidism -: Hypertension -: Atrial fibrillation not on anticoagulation -: mumps as a child -: sinus infection -: Hysterectomy -: Appendectomy -: Partial colectomy -: Cataract surgery -: Right elbow surgery -: Left wrist surgery Psychosocial/ Personal History: She is a . She has one son who checks on her. SHe lives by herself. - Family History Sister -: Cancer Brother -: Cancer Notes: Brain Mother -: Heart disease, Other (see notes) Notes: [place] - Social History Smoking Status: Never smoker Alcohol use: No CD- Drugs: No Caffeine use: Yes Place of Residence: Home <Reynaldo Villasenor - Last Filed: 04/14/20 18:41> Date of Service: 04/16/20 <Darwin Jennings - Last Filed: 04/16/20 15:33> Allergies Antihistamines - Alkylamine Allergy (Verified 04/14/20 20:39) Shortness of breath codeine Allergy (Verified 04/14/20 20:39) Shortness of breath egg Allergy (Verified 04/14/20 20:39) Nausea/Vomiting Latex, Natural Rubber Allergy (Verified 04/14/20 20:39) Itching Sulfa (Sulfonamide Antibiotics) Allergy (Verified 04/14/20 20:39) Nausea/Vomiting Home Medications: lisinopriL [Lisinopril] 20 mg PO DAILY #30 tablet 03/08/18 Aspirin [Aspirin EC 81 MG] 81 mg PO DAILY #90 tablet.dr 04/15/20 Metoprolol Tartrate [Lopressor*] 12.5 mg PO BID 6AM 6PM #60 tab 04/15/20 Pantoprazole [Protonix Tab*] 40 mg PO DAILYAC #30 tab 04/15/20 Review of Systems 10-point ROS is otherwise unremarkable Gastrointestinal: Abdominal Pain <Reynaldo Villasenor - Last Filed: 04/14/20 18:41> Physical Examination - Physical Exam General: Alert, In no apparent distress HEENT: Atraumatic, PERRLA, Mucous membr. moist/pink Neck: Supple, 2+ carotid pulse no bruit, No LAD Respiratory: Clear to auscultation bilaterally, Normal air movement Cardiovascular: Regular rate/rhythm, Normal S1 S2 Gastrointestinal: Normal bowel sounds, No masses, No rebound, No guarding, [place] (Mild epigastric and right upper quadrant tenderness noted) Musculoskeletal: No tenderness Integumentary: No rashes Neurological: Normal speech, Normal strength at 5/5 x4 extr, Normal tone, Normal affect - Studies Laboratory Data (last 24 hrs) 04/14/20 16:26: PT 11.1, INR 0.94 04/14/20 15:34: WBC 9.6 D, Hgb 13.8, Hct 40.3, Plt Count 370 04/14/20 15:34: Sodium 142, Potassium 3.4 L, BUN 14, Creatinine 1.17, Glucose 91, Magnesium 2.3, Total Bilirubin 0.3, AST 18, ALT 21, Alkaline Phosphatase 69, Lipase 88 <Reynaldo Villasenor - Last Filed: 04/14/20 18:41> Assessment and Plan - Plan Assessment NSTEMI Epigastric and right upper quadrant abdominal pain Atrial fibrillation on chronic anticoagulation therapy Hypertension GERD Plan NSTEMI: Cardiology consult in place, will trend troponins. Continue with daily aspirin, add statin therapy. Initial troponin 0.23, a troponin rises at next check will be increased to full dose anticoagulation with Lovenox. Appreciate further input from cardiology. Epigastric and right upper quadrant abdominal pain: Patient with history of cholelithiasis, will obtain ultrasound to rule out cholecystitis. Patient recently evaluated by General Surgery who recommended outpatient management. Will continue to monitor CBC. Atrial fibrillation on chronic anticoagulation therapy: Will place patient on daily aspirin due to elevated troponin and history of atrial fibrillation on chronic anticoagulation therapy. Patient will likely need echo, this will likely need to be done on an outpatient basis. Hypertension: Continue lisinopril 20 mg daily, add beta-rober with parameter. GERD: Provide p.r.n. medication. Discharge Plan: Home Plan to discharge in: 24 Hours - Advance Directives Does patient have a Living Will: No Does patient have a Durable POA for Healthcare: No - Code Status/Comfort Care Code Status Assessed: Yes (Full Code) Critical Care: No Time Spent Managing Pts Care (In Minutes): 55 <Reynaldo Villasenor - Last Filed: 04/14/20 18:41> - Plan Case discussed in detail with nurse practitioner. Agree with evaluation, assessment and plan of care. Case discussed in detail with cardiology. [place] silver troponin likely related to uncontrolled hypertension. This was not an NSTEMI. Patient with GERD and cholelithiasis. Please see discharge summary for details. <Darwin Jennings - Last Filed: 04/16/20 15:33>
[2020-04-14] MEDS ORDERED: METOPROLOL TAR 25 MG TAB ONE (19:37)
[2020-04-14] MEDS: METOPROLOL TAR 25 MG TAB PO SCH (20:25)
[2020-04-14] MEDS: NA CHLORIDE 0.9% 1,000 ML IV SCH (20:25)
[2020-04-14] MEDS ORDERED: ACETAMINOPHEN 500 MG TAB PO PRN (20:25)
[2020-04-14] MEDS ORDERED: ONDANSETRON 4 MG/2 ML VIAL IV PRN (20:25)
[2020-04-14] MEDS: lisinopriL 10 MG TAB PO SCH (21:09)
[2020-04-14 21:18] VITALS: BMI 26.5
[2020-04-14 21:50] LABS: Urine Appearance CLOUDY; Urine Bilirubin NEGATIVE (NEG); Urine Blood NEGATIVE (NEG); Urine Color YELLOW; Urine Glucose NEGATIVE (NEG); Urine Protein TRACE (NEG); Urine Urobilinogen 0.2 mg/dL (0.2-1.0)
[2020-04-14 21:51] LABS: Urine Microscopic Reflex ORDER UMIC
[2020-04-14] MEDS ORDERED: ENOXAPARIN 40 MG/0.4 ML SQ SCH (22:00)
[2020-04-14 22:08] LABS: Urine Bacteria 20-50 /HPF (<20); Urine Culture Reflex Order REFLEXED; Urine Mucus 2+ /HPF (NONE SEEN); Urine RBC <5 /HPF (NONE SEEN)
[2020-04-15 00:57] LABS: Troponin I 0.22 ng/mL (0.0-0.045)
[2020-04-15] MEDS: NA CHLORIDE 0.9% 1,000 ML IV SCH ×2 (05:41→09:45)
[2020-04-15] MEDS: METOPROLOL TAR 25 MG TAB PO SCH (05:43)
[2020-04-15 05:48] LABS: Absolute Lymphocytes (CBC) 1.4 K/uL (0.7-4.9); Basophils % 0.5 % (0-1.3); Hematocrit 39.6 % (36.0-45.0); Lymphocytes % 16.6 % (15.3-44.8); MPV 7.2 fL (7.6-11.3); RBC Red Blood Cell Count 4.44 M/uL (3.86-4.86)
[2020-04-15 06:09] LABS: ALT/SGPT 16 U/L (12-78); AST/SGOT 12 U/L (15-37); Albumin 2.8 g/dL (3.4-5.0); Alkaline Phosphatase 58 U/L (45-117); BUN Blood Urea Nitrogen 10 mg/dL (7-18); Bicarbonate 29 mmol/L (21-32); Bilirubin Total 0.5 mg/dL (0.2-1.0); CKMB Creatine Kinase MB < 1.0 ng/mL (0.3-3.6); Creatine Phosphokinase 34 U/L (26-192); Glucose Level 91 mg/dL (74-106); HDL Cholesterol 60 mg/dL (40-60); LDL Cholesterol, Calculated 125 (<130); Magnesium 2.2 mg/dL (1.8-2.4); Protein, Total 5.9 g/dL (6.4-8.2); Sodium Level 142 mmol/L (136-145); Troponin I 0.21 ng/mL (0.0-0.045)
[2020-04-15] MEDS ORDERED: PANTOPRAZOLE 40MG TABLET PO SCH (06:30)
[2020-04-15] MEDS ORDERED: LEVOTHYROXINE SOD 0.05 MG TABLET PO SCH (06:30)
[2020-04-15] MEDS ORDERED: POTASSIUM CL SA 10 MEQ TAB PO ONE (09:00)
[2020-04-15] MEDS ORDERED: ASPIRIN EC 81 MG TAB PO SCH (09:00)
[2020-04-15] MEDS: lisinopriL 10 MG TAB PO SCH (09:09)
[2020-04-15 09:13] VITALS: BP 189/79
--- NOTE | 2020-04-15 09:28 | P.DS ---
Admission Date: 04/14/20 Discharge Date: 04/15/20 Primary Care Provider: Dr. Greenberg Disposition: ROUTINE DISCHARGE Discharge Condition: GOOD Reason for Admission: NSTEMI Consultations: Cardiology-Dr. Preston Procedures: CXR: COMPARISON: 2018 FINDINGS: The lungs appear clear of acute infiltrate. The heart is mildly enlarged IMPRESSION: No acute abnormalities displayed Medical Problem List: Epigastric pain with right upper quadrant pain with history of cholelithiasis likely with underlying GERD Elevated troponin likely related to uncontrolled hypertension Acute renal injury likely dehydration Paroxysmally Atrial fibrillation on chronic anti coagulation therapy GERD Hypothyroidism Brief History of Present Illness: 89-year-old female with history of paroxysmally atrial fibrillation not on chronic anti coagulation therapy, hypertension, GERD, hypothyroidism. Patient recently evaluated for cholelithiasis. Patient presented with similar symptoms including epigastric pain and right upper quadrant abdominal pain. Blood pressure on controlled. Troponin was slightly elevated at 0.23. Chest x- ray unremarkable. Patient admitted for further evaluation and treatment. Hospital Course: Patient presented with epigastric pain with right upper quadrant abdominal pain. Patient with recent hospitalization for cholelithiasis. Patient also had acute renal injury likely from dehydration. The patient was admitted for further evaluation and treatment. Patient given IV fluids. Renal function now back to baseline. No surgical intervention was required. Symptoms resolved. Patient desired no further workup. At discharge patient without significant nausea, vomiting or epigastric pain. Education on cholelithiasis provided. Patient may follow up with surgery in the future to further evaluate. Recommend [employer] diet. Patient may have underlying GERD. At discharge, recommend Protonix 40 mg 1 pill daily at discharge. GERD education also provided. Recommend to recheck lab-BMP in 1 week to monitor her progress. Encourage oral intake to maintain adequate nutrition. Patient also had elevated troponin upon admission. Patient denied any chest pain, shortness of breath. No significant EKG changes noted. Cardiology was consulted to further evaluate. Cardiology felt elevated troponin likely related to uncontrolled hypertension. Patient has hypertension. Case discussed in detail with patient and son. Son reports patient has not been compliant with her hypertensive medications. Patient and son educated on use of pill case to help her remember taking her medication. At discharge patient will continue with lisinopril 20 mg daily and metoprolol 12.5 mg 1 pill twice daily. Recommend to maintain blood pressure less than 130/80. May need to hold metoprolol if blood pressure less than 110 systolic or heart rate less than 50. Recommend to keep a blood pressure log and follow up with her PCP within the next week to further address and get better control of her blood pressure. Education on hypertension provided. Recommend follow up with cardiology in 2-4 weeks to monitor her progress. Patient with history of paroxysmal atrial fibrillation not on chronic anti coagulation therapy. Patient remains in normal sinus rhythm. Patient continue with metoprolol 12.5 mg 1 pill twice daily for rate control and aspirin 81 mg daily. Recommend follow up with cardiology in 2-4 weeks to monitor her progress. Patient with hypothyroidism. This appears stable. At discharge she may continue with her current medication. Recommend to recheck tsh and free T4 in 4-6 weeks to monitor her progress. Further adjustment may be required. Patient with hyperlipidemia. Triglycerides 188, total cholesterol 223. Recommend heart healthy diet. May need to recheck fasting lipid panel in 4-6 weeks to monitor progress. If still elevated consider medication in the future. This can be done with the help of her PCP. Vital Signs/Physical Exam: Temp Pulse Resp BP Pulse Ox 97.6 F 54 18 189/79 H 96 04/15/20 04:00 04/15/20 05:56 04/15/20 04:00 04/15/20 09:09 04/15/20 04:00 General: Alert, In no apparent distress, Oriented x3, Cooperative HEENT: Atraumatic Neck: Supple Respiratory: Clear to auscultation bilaterally, Normal air movement Cardiovascular: Normal pulses, Regular rate/rhythm Gastrointestinal: Normal bowel sounds, Soft and benign, Non-distended, No tenderness, No masses, No rebound, No guarding Musculoskeletal: No erythema, No tenderness, No warmth Integumentary: No tenderness/swelling, No erythema, No warmth, No cyanosis Neurological: Normal speech, Normal strength at 5/5 x4 extr, Normal tone, Normal affect Laboratory Data at Discharge: WBC 8.5 K/uL (4.3-10.9) 04/15/20 05:33 Hgb 13.3 g/dL (12.0-15.0) 04/15/20 05:33 Hct 39.6 % (36.0-45.0) 04/15/20 05:33 Plt Count 334 K/uL (152-406) 04/15/20 05:33 PT 11.1 SECONDS (9.5-12.5) 04/14/20 16:26 INR 0.94 04/14/20 16:26 Sodium 142 mmol/L (136-145) 04/15/20 05:33 Potassium 3.0 mmol/L (3.5-5.1) L 04/15/20 05:33 BUN 10 mg/dL (7-18) 04/15/20 05:33 Creatinine 0.89 mg/dL (0.55-1.3) 04/15/20 05:33 Glucose 91 mg/dL (74-106) 04/15/20 05:33 Magnesium 2.2 mg/dL (1.8-2.4) 04/15/20 05:33 Total Bilirubin 0.5 mg/dL (0.2-1.0) 04/15/20 05:33 AST 12 U/L (15-37) L 04/15/20 05:33 ALT 16 U/L (12-78) 04/15/20 05:33 Alkaline Phosphatase 58 U/L (45-117) 04/15/20 05:33 Troponin I 0.21 ng/mL (0.0-0.045) H 04/15/20 05:33 Triglycerides 188 mg/dL (<150) H 04/15/20 05:33 Cholesterol 223 mg/dL (<200) H 04/15/20 05:33 HDL Cholesterol 60 mg/dL (40-60) 04/15/20 05:33 Cholesterol/HDL Ratio 3.72 04/15/20 05:33 Lipase 88 U/L (73-393) 04/14/20 15:34 Home Medications: lisinopriL [Lisinopril] 20 mg PO DAILY #30 tablet 03/08/18 Aspirin [Aspirin EC 81 MG] 81 mg PO DAILY #90 tablet. 04/15/20 Metoprolol Tartrate [Lopressor*] 12.5 mg PO BID 6AM 6PM #60 tab 04/15/20 Pantoprazole [Protonix Tab*] 40 mg PO DAILYAC #30 tab 04/15/20 New Medications: Aspirin [Aspirin EC 81 MG] 81 mg PO DAILY #90 tablet. Metoprolol Tartrate [Lopressor*] 12.5 mg PO BID 6AM 6PM #60 tab Pantoprazole [Protonix Tab*] 40 mg PO DAILYAC #30 tab Patient Discharge Instructions: 1. Recommend follow up with her PCP in 1 week to follow up this hospitalization. Patient plans to establish care with a local physician. Patient may benefit with home health once she establishes care. 2. Patient presented with epigastric pain with right upper quadrant abdominal pain. Patient with recent hospitalization for cholelithiasis. Patient also had acute renal injury likely from dehydration. The patient was admitted for further evaluation and treatment. Patient given IV fluids. Renal function now back to baseline. No surgical intervention was required. Symptoms resolved. Patient desired no further workup. At discharge patient without significant nausea, vomiting or epigastric pain. Education on cholelithiasis provided. Patient may follow up with surgery in the future to further evaluate. Recommend [employer] diet. Patient may have underlying GERD. At discharge, recommend Protonix 40 mg 1 pill daily at discharge. GERD education also provided. Recommend to recheck lab-BMP in 1 week to monitor her progress. Encourage oral intake to maintain adequate nutrition. 3. Patient also had elevated troponin upon admission. Patient denied any chest pain, shortness of breath. No significant EKG changes noted. Cardiology was consulted to further evaluate. Cardiology felt elevated troponin likely related to uncontrolled hypertension. Patient has hypertension. Case discussed in detail with patient and son. Son reports patient has not been compliant with her hypertensive medications. Patient and son educated on use of pill case to help her remember taking her medication. At discharge patient will continue with lisinopril 20 mg daily and metoprolol 12.5 mg 1 pill twice daily. Recommend to maintain blood pressure less than 130/80. May need to hold metoprolol if blood pressure less than 110 systolic or heart rate less than 50. Recommend to keep a blood pressure log and follow up with her PCP within the next week to further address and get better control of her blood pressure. Education on hypertension provided. Recommend follow up with cardiology in 2-4 weeks to monitor her progress. 4. Patient with history of atrial fibrillation not on chronic anti coagulation therapy. Patient remains in normal sinus rhythm. Patient continue with metoprolol 12.5 mg 1 pill twice daily for rate control. Recommend follow up with cardiology in 2-4 weeks to monitor her progress. 5. Patient with hypothyroidism. This appears stable. At discharge she may continue with her current medication. Recommend to recheck tsh and free T4 in 4-6 weeks to monitor her progress. Further adjustment may be required. 6. Patient with hyperlipidemia. Triglycerides 188, total cholesterol 223. Recommend heart healthy diet. May need to recheck fasting lipid panel in 4-6 weeks to monitor progress. If still elevated consider medication in the future. This can be done with the help of her PCP. Diet: AHA Activity: Fall precautions Followup: Praveen Greenberg MD [Primary Care Provider] - Time spent managing pt's care (in minutes): 55
[2020-04-15 09:38] VITALS: TEMP 97.4
[2020-04-15 11:11] VITALS: O2SAT 95
--- NOTE | 2020-04-15 15:01 | CON ---
Date of Consultation: 04/14/2020 Reason For Consultation: Atypical chest pain with elevated troponin. History Of Present Illness: Ms. Altman is an 89-year-old woman, very alert and oriented for her age, only has a history of atrial fibrillation, hypertension, and gastroesophageal reflux disease. She i s not on any anticoagulants. She takes lisinopril only from a medication standpoint. She came in wi th mostly mid epigastric pain, was found to have some gallstones. She had a potassium of 3.4. Her t roponin was 0.23. Her BNP was 823, and I was asked to consult on her but she really has no cardiac s ymptoms. The only issue was that she came in with a blood pressure of 192, which could easily explai n her elevated troponin. She denied PND, orthopnea, pedal edema, palpitation, or syncope. Denied an y fever or chills. Past Medical History: As stated above. Allergies: INCLUDE ANTIHISTAMINES, CODEINE, EGGS, LATEX, NATURAL RUBBER, SULFA, AND DEMEROL. Review of Systems: Negative. Social History: Negative. Family History: Negative. Medications: At home include lisinopril. Physical Examination: General: When I saw her, her blood pressure was 180/88. HEENT: Negative. Sinus rhythm. Neck: Supple without lymphadenopathy, JVD, thyromegaly, or bruit. Chest: Clear to auscultation and percussion. Cardiac: Revealed a regular rhythm and rate with an S4 gallops. No murmurs or rubs. Abdomen: Benign. Extremities: Revealed no clubbing, cyanosis, or edema. Diagnostic Data: As stated earlier. Chest x-ray is negative. EKG showed sinus rhythm with LVH. Impression And Plan: 1.Elevated troponin secondary to hypertension. 2.Hypokalemia that needs to be corrected. 3.BNP of 823 that is completely nonspecific and may be elevated secondary to blood pressure. 4.Hypertension, poorly controlled. I think she needs to have her lisinopril doubled or add hydrochl orothiazide to her. 5.Gastroesophageal reflux disease. 6.Paroxysmal atrial fibrillation. Not a candidate for anticoagulation. The patient said she is donovan y sensitive to any medication and is not very interested in anticoagulation or surgery for her gallst ones. Ms. Altman is asymptomatic right now. I am very comfortable with her going home. Increased her juancarlos nopril. I will see her in the office in a couple of weeks. I may get an echocardiogram on her then. MEETA/KILO Voice ID: [id number] Report ID: [id number]
--- NOTE | 2020-04-16 10:14 | EKG ---
Test Date: 2020-04-14 Test Time: 16:33:09 Supervisor Counseling And Guidance: BHANU MEASUREMENT RESULTS: Intervals: Rate: 72 AK: 214 QRSD: 76 QT: 426 QTc: 466 Isabella: P: 97 AK: 214 QRS: -15 T: 80 INTERPRETIVE STATEMENTS: Sinus rhythm with 1st degree AV block Left ventricular hypertrophy with repolarization abnormality Abnormal ECG Compared to ECG 03/07/2018 11:01:59 Left ventricular hypertrophy now present Early repolarization now present Sinus bradycardia no longer present Myocardial infarct finding no longer present Electronically Signed On 04-16-20 10:10:29 OUTREACH DIRECTOR by Sebastian Preston
== END 2020-04-15 13:05 | disposition home or self-care (01) ==
LOC: ER 14:55 → ERHOLD 17:32 → 2ND 19:54
PROVIDERS: ADMIT Family Medicine; ATTEND Family Medicine
DX: K21.9 Gastro-esophageal reflux disease without esophagitis (principal); N17.9 Acute kidney failure, unspecified; I10 Essential (primary) hypertension; R74.8 Abnormal levels of other serum enzymes; R10.11 Right upper quadrant pain; K80.20 Calculus of gallbladder without cholecystitis without obstruction; I48.0 Paroxysmal atrial fibrillation; Z79.01 Long term (current) use of anticoagulants; E03.9 Hypothyroidism, unspecified; R94.31 Abnormal electrocardiogram [ECG] [EKG]; E78.5 Hyperlipidemia, unspecified
CPT/HCPCS: 96361; 93005; 87088; 85025 ×2; 87086; 80048; 36415; 83735 ×2; 82550 ×2; 85610; 80061; 80076; 84484 ×3; 82553 ×2; 83690; 80053; 83880; 71045; 96375; 96374; 99285; J1650; J3360; J7030 ×2; G0378 ×3; 81003; 81015

== ENCOUNTER 2020-04-26 05:02 | Inpatient (IN) | payer OTHER ==
--- OUTSIDE RECORDS SUMMARY | 2020-04-26 05:05 | XMS REPORT | Continuity of Care Document ---
:1930 Author Organization [facility] t Address [address] [place] [address] Care Team Providers Name Role Phone Susan Biswas MD Attending Clinician Problems Condition Condition Condition Status Onset Resolution Last Treating Co mments Source Name Details Category Date Date Treatment Clinician Date Essential Essential Diagnosis Active [facility] (primary[facility] (primary) Luke s - hypertensi hypertensi Me moria on on l [facility] Osteopenia Osteopenia Diagnosis Active [facility] , [facility] - unspecifie unspecifie Me moria d location d location l [facility] Acquired Acquired Diagnosis Active [facility] hypothyroi hypothyroi Jessica kes - dism dism [facility] Allergies, Adverse Reactions, Alerts Allergy Allergy Status Severity Reaction(s) Onset Inactive Treating Comm ents Source Name Type Date Date Clinician Sulfa Adverse Active digestive [facility] Reaction problems [facility] Medications Ordered Filled Start Stop Current Ordering Indication Dosage Frequency Signature Comments Components Source Medication Medication Date Date Medication? Clinician (SIG) Name Name Metoprolol Metoprolol Yes Keith [address] [facility] Succinate Succinate 1-25 Maddy Luke s - ER ER 00:00: [facility] 00 l [facility] Amlodipine Amlodipine Yes Keith [address] [facility] Besylate Besylate Maddy [facility] Levothyroxi Levothyroxi Yes Keith [address] [facility] ne Sodium ne Sodium Maddy on an Stef es - empty [facility] stomach in l [facility] Lisinopril Lisinopril Yes Keith [address] [facility] Maddy [facility] Procedures This patient has no known procedures. Encounters Start End Encounter Admission Attending Care Care Encounter Source Date/Time Date/Time Type Type Clinicians Facility Department ID 2019-07-28 2019-07-28 Office SIMONE Biswas [id number] 13:42:08 14:29:42 Visit [facility] [id number] Surgical [id number] Specialti [id number] [address] [place] 2018-08-25 2018-08-25 [facility] [id number] [facility] 09:15:00 09:15:00 [facility] 2018-08-11 2018-08-11 [facility] [id number] [facility] 09:45:00 09:45:00 [facility] 2018-08-03 2018-08-03 [facility] [id number] [facility] 11:00:00 11:00:00 [facility] 2018-07-09 2018-07-09 [facility] [id number] [facility] 16:56:00 16:56:00 [facility] 2018-07-09 2018-07-09 [facility] [id number] [facility] 11:15:00 11:15:00 [facility] Clin[facility] Results This patient has no known results.
[2020-04-26] MEDS ORDERED: ONDANSETRON 4 MG/2 ML VIAL ONE ×2 (05:49→10:16)
[2020-04-26] MEDS ORDERED: NA CHLORIDE 0.9% 500 ML ONE (05:49)
[2020-04-26 05:51] LABS: Absolute Lymphocytes (CBC) 0.5 K/uL (0.7-4.9); Basophils % 0.3 % (0-1.3); Lymphocytes % 3.6 % (15.3-44.8); MPV 7.6 fL (7.6-11.3); RBC Red Blood Cell Count 4.77 M/uL (3.86-4.86)
[2020-04-26 06:07] LABS: Albumin 3.3 g/dL (3.4-5.0); Bilirubin Direct 0.1 mg/dL (0-0.2); Bilirubin Total 0.5 mg/dL (0.2-1.0); Potassium 3.7 mmol/L (3.5-5.1)
[2020-04-26 06:21] LABS: Blood Morphology Comment NOT SEEN (NOT SEEN); Platelet Estimate ADEQ; White Blood Cell Scan OK (OK)
--- NOTE | 2020-04-26 08:26 | RAD REPORT ---
EXAM DESCRIPTION: CTAbdomen Pelvis W Contrast - 04/26/2020 6:49 am CLINICAL HISTORY: Abdominal pain. ABD PAIN COMPARISON: Abdomen Pelvis W Contrast dated 04/08/2020; Abdomen Pelvis W Contrast dated 7 TECHNIQUE: Biphasic CT imaging of the abdomen and pelvis was performed with 100 ml non-ionic IV cont rast. All CT scans are performed using dose optimization technique as appropriate and may include automated exposure control or mA/KV adjustment according to patient size. FINDINGS: The inferior lung monroe are mildly emphysematous. The liver, spleen, pancreas, adrenal glands and kidneys are within normal limits. Cholelithiasis. Mild free fluid is seen in the upper abdomen. No pneumoperitoneum is seen. Multiple moderately dilate d small bowel loops are present compatible with moderate mechanical small-bowel obstruction. There ap pears to be caliber change of the small bowel in the central to right lower quadrant of the abdomen. The appendix is not identified as a discrete structure, however, no secondary findings of appendiciti s are identified. No evidence of significant lymphadenopathy. Lumbosacral degenerative changes are present. IMPRESSION: Moderate mechanical small-bowel obstruction. Mild free fluid in the abdomen. Cholelithiasis.
--- NOTE | 2020-04-26 09:54 | ER ---
Nurse's Notes [facility] Name: Ольга Altman Age: 89 yrs Sex: Female : 1930 Arrival Date: 04/26/2020 Time: 05:04 Bed 14 Private MD: Diagnosis: Other intestinal obstruction-moderate small bowel obstruction;Abdominal tenderness Presentation: 04/26 05:24 Chief complaint: Patient's son or daughter states: She has been having abdominal pain jb4 since yesterday that was in her upper right abdomen. Tonight it is in her lower right abdomen and she has been vomiting through out the night. Coronavirus screen: Client denies travel out of the [place] in the last 14 days. Ebola Screen: No symptoms or risks identified at this time. Initial Sepsis Screen: Does the patient meet any 2 criteria? No. Patient's initial sepsis screen is negative. Does the patient have a suspected source of infection? No. Patient's initial sepsis screen is negative. Risk Assessment: Do you want to hurt yourself or someone else? Patient reports no desire to harm self or others. Onset of symptoms was April 26, 2020. 05:24 Method Of Arrival: Wheelchair jb4 05:24 Acuity: KENNEY 3 jb4 Historical: - Allergies: 05:33 Codeine; jb4 05:33 Demerol; jb4 05:33 Fentanyl; jb4 05:33 Sulfa (Sulfonamide Antibiotics); jb4 05:33 Opioids; jb4 - Home Meds: 05:33 lisinopril Oral [Active]; metoprolol tartrate 25 mg Oral tab [Active]; pantoprazole jb4 oral oral [Active]; - PMHx: 05:33 Atrial Fib; gallbladder infection; Hypothyroidism; Hypertension; jb4 - PSHx: 05:33 Hysterectomy; Appendectomy; jb4 - Immunization history:: Adult Immunizations up to date. - Social history:: Smoking status: Patient denies any tobacco usage or history of. Patient uses alcohol, occasionally. Patient/guardian denies using street drugs. - Family history:: not pertinent. - Hospitalizations: : The patient was recently seen at [facility]. Assessment: 05:43 General: Appears in no apparent distress. comfortable, Behavior is calm, cooperative, jb4 appropriate for age. Pain: Denies pain. Neuro: Level of Consciousness is awake, alert, obeys commands, Oriented to person, place, time, situation. Cardiovascular: Patient's skin is warm and dry. Respiratory: Airway is patent Respiratory effort is even, unlabored, Respiratory pattern is regular, symmetrical. GI: Abdomen is round non-distended, Bowel sounds present X 4 quads. Abd is soft X 4 quads Abd is non tender in left upper quadrant, right lower quadrant and left lower quadrant Abdomen is tender to palpation in right upper quadrant. : No signs and/or symptoms were reported regarding the genitourinary system. EENT: No signs and/or symptoms were reported regarding the EENT system. Derm: Skin is intact, Skin is pink, warm \\T\\ dry. Musculoskeletal: Circulation, motion, and sensation intact. Range of motion: intact in all extremities. 06:38 Reassessment: Patient appears in no apparent distress at this time. Patient and/or jb4 family updated on plan of care and expected duration. Pain level reassessed. Patient is alert, oriented x 3, equal unlabored respirations, skin warm/dry/pink. 07:34 Reassessment: Patient appears in no apparent distress at this time. Patient and/or tw2 family updated on plan of care and expected duration. Pain level reassessed. Patient is alert, oriented x 3, equal unlabored respirations, skin warm/dry/pink. 08:30 Reassessment: Patient appears in no apparent distress at this time. Patient and/or tw2 family updated on plan of care and expected duration. Pain level reassessed. Patient is alert, oriented x 3, equal unlabored respirations, skin warm/dry/pink. 09:30 Reassessment: Patient appears in no apparent distress at this time. Patient and/or tw2 family updated on plan of care and expected duration. Pain level reassessed. Patient is alert, oriented x 3, equal unlabored respirations, skin warm/dry/pink. 10:29 Reassessment: Patient appears in no apparent distress at this time. Patient and/or tw2 family updated on plan of care and expected duration. Pain level reassessed. Patient is alert, oriented x 3, equal unlabored respirations, skin warm/dry/pink. Vital Signs: 05:24 BP 131 / 103; Pulse 96; Resp 16; Temp 98.7(O); Pulse Ox 96% on R/A; Weight 73.94 kg jb4 (R); Height 5 ft. 6 in. (167.64 cm) (R); Pain 0/10; 06:38 BP 160 / 99; Pulse 90; Resp 19; Pulse Ox 98% on R/A; jb4 07:34 BP 183 / 93; Pulse 79; Resp 16; Pulse Ox 97% on R/A; tw2 08:30 BP 170 / 87; Pulse 84; Resp 18; Pulse Ox 97% on R/A; tw2 09:30 BP 150 / 97; Pulse 83; Resp 17; Pulse Ox 97% on R/A; tw2 10:30 BP 193 / 98; Pulse 75; Resp 15; Pulse Ox 97% on R/A; tw2 11:30 BP 184 / 93; Pulse 76; Resp 17; Pulse Ox 97% on R/A; tw2 05:24 Body Mass Index 26.31 (73.94 kg, 167.64 cm) jb4 10:30 provider notified of bp tw2 ED Course: 05:04 Patient arrived in ED. ag3 05:11 Babatunde Crowley MD is Attending Physician. rn 05:24 Surendra Romero RN is Primary Nurse. jb4 05:26 Triage completed. jb4 05:33 Arm band placed on right wrist. jb4 05:35 Inserted saline lock: 22 gauge in right antecubital area, using aseptic technique. ds4 Blood collected. 06:49 CT Abd/Pelvis - IV Contrast Only In Process Unspecified. EDMS 07:05 Report received from LORRAINE Conteh. tw2 07:21 Primary Nurse role handed off by Surendra Romero, LORRAINE bd 07:30 Attending Physician role handed off by Babatunde Crowley MD paulo 07:30 David Holbrook MD is Attending Physician. paulo 07:33 Valeria Davila, LORRAINE is Primary Nurse. tw2 09:51 Gabo Snow MD is Hospitalizing Provider. paulo 10:10 EKG done, by ED staff, reviewed by David Holbrook MD. dh3 10:27 NGT: inserted 16 Fr. via right nare. verified placement of air over stomach, verified tw2 return of gastric contents, to intermittent suction. Patient tolerated well. 12:37 Awaiting: unsuccessful to call report at this time. tw2 12:54 No provider procedures requiring assistance completed. Patient admitted, IV remains in tw2 place. Administered Medications: 05:43 Drug: Zofran (Ondansetron) 4 mg Route: IVP; Site: right antecubital; jb4 05:45 Drug: NS 0.9% 500 ml Route: IV; Rate: bolus; Site: right antecubital; jb4 10:12 Drug: NS 0.9% 1000 ml Route: IV; Rate: 125 ml/hr; Site: right antecubital; tw2 10:12 Drug: Zofran (Ondansetron) 4 mg Route: IVP; Site: right antecubital; tw2 10:14 Drug: Pepcid 20 mg Route: IVP; Site: right antecubital; tw2 12:00 Follow up: Response: No adverse reaction tw2 10:15 Drug: Zosyn 3.375 grams Route: IVPB; Infused Over: 60 mins; Site: right antecubital; tw2 11:15 Follow up: Response: No adverse reaction; IV Status: Completed infusion; IV Intake: tw2 100ml 10:47 Not Given (Patient Refused; states "i have such bad hallucinations" , provider tw2 notified.): morphine 2 mg IVP once; (PAIN>8) RASS on ADMN: Combtv4, Very Agttd3, Agttd2, Rstlss1, AlertClm0, Drwsy-1, LtSdtn-2, ModSdtn-3, DpSdtn-4, UnArsble-5 x2 Intake: 11:15 IV: 100ml; Total: 100ml. tw2 Outcome: 09:53 Decision to Hospitalize by Provider. paulo 12:54 Admitted to Med/surg accompanied by tech, via wheelchair, room 210, with chart, Report tw2 called to lorraine edmond 12:55 Condition: stable tw2 12:55 Instructed on the need for admit. 12:55 Patient left the ED. tw2 Signatures: Dispatcher [employer] EDMS Tejal Meyer Corey, MD MD cha Nieto, Roman, MD MD rn Swanson, Donovan ds4 Valeria Davila RN RN tw2 Surendra Romero RN RN jb4 Mary Ribeiro 3 Uyen Diaz [facility]
--- NOTE | 2020-04-26 09:54 | EDPHYS ---
Physician Documentation [facility] Name: Ольга Altman Age: 89 yrs Sex: Female : 1930 Arrival Date: 04/26/2020 Time: 05:04 Bed 14 Private MD: KAYODE Physician David Holbrook HPI: 04/26 05:24 This 89 yrs old Female presents to ER via Unassigned with complaints of rn Abdominal Pain. 05:24 The patient presents with abdominal pain in the right upper quadrant, right lower rn quadrant. Onset: The symptoms/episode began/occurred last night. The symptoms do not radiate. Associated signs and symptoms: Pertinent positives: nausea and vomiting, Pertinent negatives: chest pain, constipation, diarrhea, fever, shortness of breath, vomiting blood. The symptoms are described as dull, intermittent. Modifying factors: The symptoms are alleviated by nothing, the symptoms are aggravated by touching the area. Severity of pain: At its worst the pain was moderate in the emergency department the pain is unchanged. The patient has experienced similar episodes in the past. The patient has been recently seen at the [facility] Emergency Department, The patient has been recently been admitted at [facility]. Reports admitted recently for identical problems, was too scared of anesthesia and got better so didn't get gallbladder removed, returns with worsening right sided abd pain since last night. + vomiting. . Historical: - Allergies: 05:33 Codeine; jb4 05:33 Demerol; jb4 05:33 Fentanyl; jb4 05:33 Sulfa (Sulfonamide Antibiotics); jb4 05:33 Opioids; jb4 - Home Meds: 05:33 lisinopril Oral [Active]; metoprolol tartrate 25 mg Oral tab [Active]; pantoprazole jb4 oral oral [Active]; - PMHx: 05:33 Atrial Fib; gallbladder infection; Hypothyroidism; Hypertension; jb4 - PSHx: 05:33 Hysterectomy; Appendectomy; jb4 - Immunization history:: Adult Immunizations up to date. - Social history:: Smoking status: Patient denies any tobacco usage or history of. Patient uses alcohol, occasionally. Patient/guardian denies using street drugs. - Family history:: not pertinent. - Hospitalizations: : The patient was recently seen at [facility]. ROS: 05:24 Constitutional: Negative for fever, chills, and weight loss, Eyes: Negative for injury, rn pain, redness, and discharge, Neck: Negative for injury, pain, and swelling, Cardiovascular: Negative for chest pain, palpitations, and edema, Respiratory: Negative for shortness of breath, cough, wheezing, and pleuritic chest pain, Abdomen/GI: Negative for diarrhea, and constipation, Back: Negative for injury and pain, MS/Extremity: Negative for injury and deformity, Skin: Negative for injury, rash, and discoloration, Neuro: Negative for headache, numbness, tingling, and seizure. 05:24 All other systems are negative. Exam: 05:24 Constitutional: This is a well developed, well nourished patient who is awake, alert, rn laying on left sided, appears uncomfortable Head/Face: Normocephalic, atraumatic. Eyes: Pupils equal round and reactive to light, extra-ocular motions intact. Lids and lashes normal. Conjunctiva and sclera are non-icteric and not injected. Cornea within normal limits. Periorbital areas with no swelling, redness, or edema. ENT: dry MM Cardiovascular: Regular rate and rhythm. No pulse deficits. Respiratory: No increased work of breathing, no retractions or nasal flaring. Abdomen/GI: soft, + tendern RUQ and RLQ, no rebound, no peritoneal signs Skin: Warm, dry MS/ Extremity: Pulses equal, no cyanosis. Neuro: Awake and alert, GCS 15 12:04 ECG was reviewed by the Attending Physician. [facility] Vital Signs: 05:24 BP 131 / 103; Pulse 96; Resp 16; Temp 98.7(O); Pulse Ox 96% on R/A; Weight 73.94 kg jb4 (R); Height 5 ft. 6 in. (167.64 cm) (R); Pain 0/10; 06:38 BP 160 / 99; Pulse 90; Resp 19; Pulse Ox 98% on R/A; jb4 07:34 BP 183 / 93; Pulse 79; Resp 16; Pulse Ox 97% on R/A; tw2 08:30 BP 170 / 87; Pulse 84; Resp 18; Pulse Ox 97% on R/A; tw2 09:30 BP 150 / 97; Pulse 83; Resp 17; Pulse Ox 97% on R/A; tw2 10:30 BP 193 / 98; Pulse 75; Resp 15; Pulse Ox 97% on R/A; tw2 11:30 BP 184 / 93; Pulse 76; Resp 17; Pulse Ox 97% on R/A; tw2 05:24 Body Mass Index 26.31 (73.94 kg, 167.64 cm) jb4 10:30 provider notified of bp tw2 MDM: 05:11 Patient medically screened. rn 05:30 Differential diagnosis: appendicitis, bowel obstruction, cholecystitis, Cholelithiasis, rn diverticulitis, gastritis, gastroesophageal reflux disease, non-specific abd pain, pancreatitis, Peptic Ulcer Disease. Data reviewed: vital signs, nurses notes, old medical records, Multiple visits for abd pain, similar presentation, cholelithiasis thought to be source of pain. 09:49 Data interpreted: groundwater monitoring technician: rate is 84 beats/min, rhythm is regular, Pulse paulo oximetry: on room air is 97 %. Test interpretation: by ED physician or midlevel provider: ECG, plain radiologic studies. Counseling: I had a detailed discussion with the patient and/or guardian regarding: the historical points, exam findings, and any diagnostic results supporting the discharge/admit diagnosis, lab results, radiology results, the need for further work-up and treatment in the hospital. 04/26 05:18 Order name: Basic Metabolic Panel; Complete Time: 06:12 04/26 05:18 Order name: CBC with Diff; Complete Time: 06:22 04/26 05:18 Order name: Hepatic Function; Complete Time: 06:12 04/26 05:18 Order name: Lipase; Complete Time: 06:12 04/26 05:54 Order name: CBC Smear Scan; Complete Time: 06:22 EDAK 04/26 09:51 Order name: Magnesium; Complete Time: 11:45 [facility] 04/26 05:18 Order name: CT Abd/Pelvis - IV Contrast Only; Complete Time: 09:45 04/26 09:51 Order name: NT PRO-BNP; Complete Time: 11:45 [facility] 04/26 09:51 Order name: PT-INR; Complete Time: 11:45 [facility] 04/26 09:51 Order name: Troponin (emerg Dept Use Only); Complete Time: 11:45 [facility] 04/26 09:51 Order name: XRAY Chest (1 view) [facility] 04/26 10:28 Order name: CXR XRAY bd 04/26 11:04 Order name: RAD; Complete Time: 11:45 EDMS 04/26 11:05 Order name: RAD; Complete Time: 11:45 EDMS 04/26 05:18 Order name: IV Saline Lock; Complete Time: 05:34 rn 04/26 05:18 Order name: Labs collected and sent; Complete Time: 05:34 rn 04/26 05:29 Order name: Monitor; Complete Time: 05:40 rn 04/26 09:49 Order name: NG Tube: to lis; Complete Time: 10:27 [facility] 04/26 09:51 Order name: EKG; Complete Time: 09:52 [facility] 04/26 09:51 Order name: EKG - Nurse/Tech; Complete Time: 10:11 [facility] 04/26 09:51 Order name: O2 Per Protocol; Complete Time: 09:53 [facility] 04/26 09:51 Order name: O2 Sat Monitoring; Complete Time: 09:53 [facility] 04/26 09:57 Order name: CONS Physician Consult EDMS EC:04 Rate is 14 beats/min. Rhythm is regular. QRS [place] is Normal. CO interval is prolonged paulo at 222 msec. QRS interval is normal. QT interval is normal. No Q waves. T waves are Normal. No ST changes noted. Clinical impression: NSR w/ Non-specific ST/T Changes and No evidence of ischemia. Interpreted by me. Reviewed by me. Administered Medications: 05:43 Drug: Zofran (Ondansetron) 4 mg Route: IVP; Site: right antecubital; jb4 05:45 Drug: NS 0.9% 500 ml Route: IV; Rate: bolus; Site: right antecubital; jb4 10:12 Drug: NS 0.9% 1000 ml Route: IV; Rate: 125 ml/hr; Site: right antecubital; tw2 10:12 Drug: Zofran (Ondansetron) 4 mg Route: IVP; Site: right antecubital; tw2 10:14 Drug: Pepcid 20 mg Route: IVP; Site: right antecubital; tw2 12:00 Follow up: Response: No adverse reaction tw2 10:15 Drug: Zosyn 3.375 grams Route: IVPB; Infused Over: 60 mins; Site: right antecubital; tw2 11:15 Follow up: Response: No adverse reaction; IV Status: Completed infusion; IV Intake: tw2 100ml 10:47 Not Given (Patient Refused; states "i have such bad hallucinations" , provider tw2 notified.): morphine 2 mg IVP once; (PAIN>8) RASS on ADMN: Combtv4, Very Agttd3, Agttd2, Rstlss1, AlertClm0, Drwsy-1, LtSdtn-2, ModSdtn-3, DpSdtn-4, UnArsble-5 x2 Disposition: 04/26/20 09:53 Hospitalization ordered by Gabo Snow for Inpatient Admission. Preliminary diagnosis are Other intestinal obstruction - moderate small bowel obstruction, Abdominal tenderness. - Bed requested for Telemetry/MedSurg (Inpatient). - Status is Inpatient Admission. tw2 - Condition is Fair. - Problem is new. - Symptoms have improved. Signatures: Dispatcher [employer] EDMS Belinda Bob RN David Andrews MD MD cha Nieto, Roman, MD MD rn Wise, Tara, RN RN 2 Surendra Romero RN RN jb4 Corrections: (The following items were deleted from the chart) 12: 09:53 Hospitalization Ordered by Gabo Snow MD for Inpatient Admission. Preliminary kl diagnosis is Other intestinal obstruction - moderate small bowel obstruction; Abdominal tenderness. Bed requested for Telemetry/MedSurg (Inpatient). Status is Inpatient Admission. Condition is Fair. Problem is new. Symptoms have improved. [facility] 12:55 12:26 04/26/2020 09:53 Hospitalization Ordered by Gabo Snow MD for Inpatient tw2 Admission. Preliminary diagnosis is Other intestinal obstruction - moderate small bowel obstruction; Abdominal tenderness. Bed requested for Telemetry/MedSurg (Inpatient). Status is Inpatient Admission. Condition is Fair. Problem is new. Symptoms have improved. kl
[2020-04-26] MEDS ORDERED: NA CHLORIDE 0.9% 1,000 ML ONE (10:16)
[2020-04-26] MEDS ORDERED: MORPHINE 2 MG/ML SYR ONE (10:16)
[2020-04-26] MEDS ORDERED: FAMOTIDINE 20 MG/2 ML VIAL IV ONE (10:16)
[2020-04-26] MEDS ORDERED: PIPER/TAZO/NS 3.375gm 3.375 GM/100 ML BAG ONE (10:17)
[2020-04-26 10:28] LABS: Protime INR 0.95
[2020-04-26 10:43] LABS: Troponin (Emerg Dept Use Only) 0.07 ng/mL (0.0-0.045)
[2020-04-26 10:45] LABS: Magnesium 2.4 mg/dL (1.8-2.4)
--- NOTE | 2020-04-26 11:02 | RAD REPORT ---
EXAM DESCRIPTION: RAD - Chest Single View - 04/26/2020 10:49 am CLINICAL HISTORY: ABDOMINAL DISTENTION Chest pain. COMPARISON: Chest Single View dated 04/14/2020; Chest Single View dated 03/07/2018; Chest Single View dated 05/05/2016; CHEST SINGLE VIEW dated 02/08/2015 FINDINGS: Portable technique limits examination quality. The lungs are grossly clear. The heart is upper limit of normal in size. Enteric tube coils in the st omach region.
--- NOTE | 2020-04-26 11:03 | RAD REPORT ---
EXAM DESCRIPTION: RAD - Abdomen 1 View (KUB) - 04/26/2020 10:50 am CLINICAL HISTORY: ng tube placement Pain COMPARISON: <Comparisons> FINDINGS: Enteric tube is coiled in the stomach.
--- NOTE | 2020-04-26 11:48 | CON ---
Date of Consultation: 04/26/2020 Reason For Consultation: Abdominal pain. History Of Present Illness: The patient is an 89-year-old female, who has had diffuse abdominal pain crampy in nature since yesterday associated with a couple episodes of nausea and vomiting. She did have a bowel movement a day or 2 ago and she is still passing gas. She has pain about 3 weeks ago an d workup revealed cholelithiasis at which time, she did not want any surgical intervention and she di d not have acute cholecystitis, on conservative measures she improved and she was discharged. She davis s also had an episode of a heart issue that she was admitted recently. She is awake, alert, feels a little better, stating that the NG tube was uncomfortable. Abdominal pain is better. No sore throat , runny nose, cough, headaches, or dizziness. No chest pain. No fever or chills. Review of Systems: Otherwise unremarkable. Past Medical History: Significant for atrial fibrillation, hypertension, hypothyroidism. Past Surgical History: Hysterectomy, appendectomy, partial colectomy, cataract surgery. Right elbow surgery, left wrist surgery. Allergies: REVIEWED INCLUDE SULFA. ANTIHISTAMINES ALLERGIES AND CODEINE WELL. Social History: She does not smoke or drink alcohol. Family History: Significant for heart disease in the mother and brother and sister with unknown type of cancer. Physical Examination: Vital Signs: Currently stable. She is afebrile. She is awake, alert, and oriented x3. Head and neck: Cranial nerves 2 through 12 are grossly within normal limits. No neck masses. No JV D. Throat clear. Neck is supple. Chest: Clear. Heart: S1, S2. Abdomen: Soft, minimal distention. No tenderness, no rebound, no rigidity. No guarding, no abdomin al wall hernia appreciated. Extremity: Adequately perfused. Nontender. Neuro: Nonfocal. CT of the abdomen and pelvis reviewed. It shows moderate mechanical small bowel ob struction. Mild free fluid in the abdomen, cholelithiasis. Multiple moderately dilated small bowel loops are present with moderate mechanical small bowel obstruction. There appears to be a caliber ch marlin of the small bowel in the central to right lower quadrant of the abdomen. No secondary findings of appendicitis are identified. No evidence of significant lymphadenopathy. Assessment: Small bowel obstruction and cholelithiasis. Recommendation: N.p.o. IV fluid, IV antibiotics, serial abdominal exam. We will get an abdominal x- ray tomorrow. Follow this patient. Hopefully this will resolve with medical management. Should it not, she may need intervention. Plan of care discussed with family members and patient. /MODL Voice ID: [id number] Report ID: [id number]
[2020-04-26 13:07] VITALS: BMI 25.8
[2020-04-26] MEDS ORDERED: ACETAMINOPHEN 500 MG TAB PO PRN (13:07)
[2020-04-26] MEDS ORDERED: ONDANSETRON 4 MG/2 ML VIAL IV PRN (13:07)
[2020-04-26] MEDS ORDERED: NA CHLORIDE 0.9% 1,000 ML IV SCH (13:07)
[2020-04-26] MEDS ORDERED: MORPHINE 4 MG/ML SYR IV PRN (13:07)
[2020-04-26] MEDS: PIPER/TAZO/NS 3.375gm 3.375 GM/100 ML BAG IVPB SCH (16:51)
[2020-04-26] MEDS: METOPROLOL TARTRATE 5 MG/5 ML INJ IV SCH ×2 (17:02→22:08)
[2020-04-26] MEDS: ENOXAPARIN 40 MG/0.4 ML SQ SCH (18:00)
--- NOTE | 2020-04-26 18:04 | EKG ---
Test Date: 2020-04-26 Test Time: 10:03:45 Supervisor Personnel Clerks: SHASTA MEASUREMENT RESULTS: Intervals: Rate: 82 DE: 222 QRSD: 76 QT: 388 QTc: 453 Arabi: P: 86 DE: 222 QRS: 33 T: 92 INTERPRETIVE STATEMENTS: Sinus rhythm with 1st degree AV block Nonspecific T wave abnormality Abnormal ECG Compared to ECG 04/14/2020 16:33:09 T-wave abnormality now present Left ventricular hypertrophy no longer present Early repolarization no longer present Electronically Signed On 04-26-20 18:02:36 DEMURRAGE WORKER by Sebastian Preston
--- NOTE | 2020-04-26 18:10 | P.HP ---
Certification for Inpatient Patient admitted to: Inpatient With expected LOS: >2 Midnights Practitioner: I am a practitioner with admitting privileges, knowledge of patient current condition, hospital course, and medical plan of care. Services: Services provided to patient in accordance with Admission requirements found in Title 42 Section 412.3 of the Code of Federal Regulations Patient History Date of Service: 04/26/20 Reason for admission: ABDOMEN PAIN. History of Present Illness: MS MILES HAS ABDOMEN PAIN , NAUSEA YESTERDAY. SHE DID NOT DRINK MUCH WATER. SHE CAME TO ER AND WAS FOUND TO HAVE BOWEL OBSTRUCTION. Allergies Antihistamines - Alkylamine Allergy (Verified 04/14/20 20:39) Shortness of breath codeine Allergy (Verified 04/14/20 20:39) Shortness of breath egg Allergy (Verified 04/14/20 20:39) Nausea/Vomiting Latex, Natural Rubber Allergy (Verified 04/14/20 20:39) Itching Sulfa (Sulfonamide Antibiotics) Allergy (Verified 04/14/20 20:39) Nausea/Vomiting Home Medications: lisinopriL [Lisinopril] 20 mg PO DAILY #30 tablet 03/08/18 Aspirin [Aspirin EC 81 MG] 81 mg PO DAILY #90 tablet.dr 04/15/20 Metoprolol Tartrate [Lopressor*] 12.5 mg PO BID 6AM 6PM #60 tab 04/15/20 Pantoprazole [Protonix Tab*] 40 mg PO DAILYAC #30 tab 04/15/20 Folic Acid 1 mg PO DAILY 04/26/20 ursodioL [Actigall*] 2 cap PO BID 04/26/20 - Past Medical/Surgical History Has patient received pneumonia vaccine in the past: No Diabetic: No -: Hypothyroidism -: Hypertension -: Atrial fibrillation not on anticoagulation -: scarlet fever as a child -: sinus infection -: Hysterectomy -: Appendectomy -: Partial colectomy -: Cataract surgery -: Right elbow surgery -: Left wrist surgery Psychosocial/ Personal History: She is a . She has one son who checks on her. SHe lives by herself. - Family History Sister -: Cancer Brother -: Cancer Notes: Brain Mother -: Heart disease, Other (see notes) Notes: [place] - Social History Smoking Status: Never smoker Alcohol use: No CD- Drugs: No Caffeine use: Yes Place of Residence: Home Review of Systems 10-point ROS is otherwise unremarkable Physical Examination - Vital Signs Temperature: 97.7 F Blood Pressure: 172/68 Pulse: 71 Respirations: 16 Pulse Ox (%): 96 - Physical Exam General: Oriented x3, Mild distress HEENT: Atraumatic, PERRLA, Mucous membr. moist/pink, EOMI, Sclerae nonicteric Neck: Supple, 2+ carotid pulse no bruit, No LAD, Without JVD or thyroid abnormality Respiratory: Clear to auscultation bilaterally, Normal air movement Cardiovascular: Regular rate/rhythm, Normal S1 S2 Gastrointestinal: Normal bowel sounds, No tenderness Musculoskeletal: No tenderness Integumentary: No rashes Neurological: Normal gait, Normal speech, Normal strength at 5/5 x4 extr, Normal tone, Normal affect Lymphatics: No axilla or inguinal lymphadenopathy - Studies Laboratory Data (last 24 hrs) 04/26/20 05:35: WBC 12.5 H D, Hgb 14.2, Hct 42.0, Plt Count 380 04/26/20 05:35: Sodium 136, Potassium 3.7, BUN 20 H, Creatinine 1.09, Glucose 128 H, Total Bilirubin 0.5, AST 11 L, ALT 16, Alkaline Phosphatase 65, Lipase 117 Assessment and Plan - Problems (Diagnosis) (1) Bowel obstruction Current Visit: Yes Status: Acute Plan: NGT WITH LIS MOST LIKELY WILL OPEN UP. ABDOMEN IS SOFT AND NOT TENDER. - Advance Directives Does patient have a Living Will: Yes Does patient have a Durable POA for Healthcare: Yes
[2020-04-26] MEDS: NACHLORIDE 0.45% 1,000 ML IV SCH (18:42)
[2020-04-26 18:43] LABS: MPV 7.5 fL (7.6-11.3)
[2020-04-26 19:12] LABS: Platelet Estimate ADEQ
[2020-04-26] MEDS: FAMOTIDINE 20 MG/2 ML VIAL IV SCH (21:05)
[2020-04-27] MEDS: PIPER/TAZO/NS 3.375gm 3.375 GM/100 ML BAG IVPB SCH ×3 (00:58→17:36)
[2020-04-27] MEDS: METOPROLOL TARTRATE 5 MG/5 ML INJ IV SCH ×4 (05:21→23:20)
[2020-04-27 06:01] LABS: Absolute Lymphocytes (CBC) 1.1 K/uL (0.7-4.9); Basophils % 0.6 % (0-1.3); Hematocrit 38.7 % (36.0-45.0); Lymphocytes % 15.6 % (15.3-44.8); MPV 7.4 fL (7.6-11.3); RBC Red Blood Cell Count 4.38 M/uL (3.86-4.86)
[2020-04-27 06:16] LABS: Albumin 3.1 g/dL (3.4-5.0); Bilirubin Direct 0.2 mg/dL (0-0.2); Bilirubin Total 0.7 mg/dL (0.2-1.0); Potassium 3.3 mmol/L (3.5-5.1); Protein, Total 6.5 g/dL (6.4-8.2)
[2020-04-27] MEDS: FAMOTIDINE 20 MG/2 ML VIAL IV SCH ×2 (08:33→21:20)
[2020-04-27] MEDS: ENOXAPARIN 40 MG/0.4 ML SQ SCH (08:34)
--- NOTE | 2020-04-27 09:14 | RAD REPORT ---
EXAM DESCRIPTION: RAD - Abdomen W Erect - 04/27/2020 9:09 am CLINICAL HISTORY: sbo Pain COMPARISON: Abdomen 1 View (KUB) dated 04/26/2020 FINDINGS: Bowel gas pattern appears nonobstructive on today's study. No suspicious calcifications. No significant bony findings. Enteric tube coils in the stomach. IMPRESSION: Nonobstructive bowel-gas pattern.
--- NOTE | 2020-04-27 09:19 | PN ---
Date of Progress Note: 04/27/2020 Subjective: Patient is awake, alert, passing gas. No bowel movement. No abdominal pain. No nausea , no vomiting. Objective: Vital Signs: Vitals are stable. She is afebrile. Abdomen: Exam reveals soft, nondistended, nontender. Positive bowel sounds. Laboratory Data: Reviewed. White count is normal. Abdominal x-ray is pending. Assessment: Small-bowel obstruction, resolving. Recommendation: We will check the x-rays that has been ordered this morning, and if there is no wors ening of the dilatation, we will proceed with clear liquids and clamping NG tube and advance her diet as tolerated. RADHA/MODL Voice ID: [id number] Report ID: [id number]
[2020-04-27] MEDS: NACHLORIDE 0.45% 1,000 ML IV SCH ×2 (17:36→21:40)
--- NOTE | 2020-04-27 21:05 | P.PN ---
Subjective Date of Service: 04/27/20 Chief Complaint: ABDOMEN PAIN. Subjective: Improving HER ABDOMEN IS SOFT, SHE STILL HAS NOT HAD BM. Review of Systems 10-point ROS is otherwise unremarkable Physical Examination - Vital Signs Temperature: 98.4 F Blood Pressure: 158/82 Pulse: 55 Respirations: 18 Pulse Ox (%): 93 - Physical Exam General: Alert, In no apparent distress HEENT: Atraumatic, PERRLA, EOMI Neck: Supple, JVD not distended Respiratory: Clear to auscultation bilaterally, Normal air movement Cardiovascular: Regular rate/rhythm, Normal S1 S2 Gastrointestinal: Normal bowel sounds, No tenderness Musculoskeletal: No tenderness Integumentary: No rashes Neurological: Normal speech, Normal tone, Normal affect Lymphatics: No axilla or inguinal lymphadenopathy - Studies Medications List Reviewed: Yes Assessment And Plan - Current Problems (Diagnosis) (1) Bowel obstruction Current Visit: Yes Status: Acute Plan: NGT WITH LIS MOST LIKELY WILL OPEN UP. ABDOMEN IS SOFT AND NOT TENDER. NO BM YET. SHE NEEDS TO HVE BM BEFORE DC. SHE DOES NTO WNT SURGERY. (2) Cholelithiasis Current Visit: No Status: Acute Plan: SHE HAS CHR CHOLECYTITIS. SHE REFUSES SURGERY. SHE IS ON CHAU TO CUT DOWN RECURRENT PAIN IF IT WORKS.
[2020-04-28] MEDS: PIPER/TAZO/NS 3.375gm 3.375 GM/100 ML BAG IVPB SCH ×2 (00:53→09:53)
[2020-04-28 01:42] VITALS: O2SAT 96
[2020-04-28] MEDS: METOPROLOL TARTRATE 5 MG/5 ML INJ IV SCH ×2 (05:56→12:42)
[2020-04-28 06:18] LABS: Basophils % 0.4 % (0-1.3); Hematocrit 35.2 % (36.0-45.0); Lymphocytes % 15.4 % (15.3-44.8); MPV 7.5 fL (7.6-11.3); RBC Red Blood Cell Count 4.02 M/uL (3.86-4.86)
[2020-04-28] MEDS: ENOXAPARIN 40 MG/0.4 ML SQ SCH (09:49)
[2020-04-28] MEDS: FAMOTIDINE 20 MG/2 ML VIAL IV SCH (09:49)
[2020-04-28 12:43] VITALS: BP 164/86
--- NOTE | 2020-04-28 13:12 | PN ---
Date of Progress Note: 04/28/2020 Subjective: The patient is awake, alert, tolerating full liquids and passing gas. No abdominal pain . No nausea, vomiting, however no bowel movement. Objective: Vital Signs: Stable and afebrile. Abdomen: Soft, nondistended, nontender. Positive bowel sounds. Laboratory Data: Reviewed. Essentially within normal limits. Assessment: Small bowel obstruction, resolved. Recommendation: Advance diet. Cleared for discharge. Reconsult Surgery p.r.nGabby GARCIA/KILO Voice ID: [id number] Report ID: [id number]
[2020-04-28 14:01] VITALS: TEMP 97.3
--- NOTE | 2020-04-28 16:59 | P.DS ---
Admission Date: 04/26/20 Discharge Date: 04/28/20 Disposition: ROUTINE DISCHARGE Discharge Condition: FAIR Reason for Admission: ABDOMEN PAIN. - Problems (1) Bowel obstruction Status: Acute (2) Cholelithiasis Status: Acute Brief History of Present Illness: MS MILES HAS ABDOMEN PAIN , NAUSEA YESTERDAY. SHE DID NOT DRINK MUCH WATER. SHE CAME TO ER AND WAS FOUND TO HAVE BOWEL OBSTRUCTION. Hospital Course: MARCO IS IN GOOD SPIRITS. SHE HAS BEEN PASSING GAS. SHE IS ABLE TO TOLERAT FOOD. HER X RAY DOES NOT SHOW ANY BLOCKAGE. SHE HAS KNOWN GALL BLADDER ISSUES BUT DOES NOT WANT SURGERY. THIS IS WHY SHE IS ON CHAU TO HOPEFULLY REDUCE STONE SIZE. OR AT LEAST CUT DOWN COLICS. Vital Signs/Physical Exam: Temp Pulse Resp BP Pulse Ox 97.3 F 50 16 164/86 H 98 04/28/20 12:00 04/28/20 12:00 04/28/20 12:00 04/28/20 12:42 04/28/20 12:00 General: Alert, In no apparent distress HEENT: Atraumatic, PERRLA, EOMI Neck: Supple, JVD not distended Respiratory: Clear to auscultation bilaterally, Normal air movement Cardiovascular: Regular rate/rhythm, Normal S1 S2 Gastrointestinal: Normal bowel sounds, No tenderness Musculoskeletal: No tenderness Integumentary: No rashes Neurological: Normal speech, Normal tone, Normal affect Lymphatics: No axilla or inguinal lymphadenopathy Laboratory Data at Discharge: WBC 6.5 K/uL (4.3-10.9) 04/28/20 05:34 Hgb 12.3 g/dL (12.0-15.0) 04/28/20 05:34 Hct 35.2 % (36.0-45.0) L 04/28/20 05:34 Plt Count 319 K/uL (152-406) 04/28/20 05:34 PT 11.2 SECONDS (9.5-12.5) 04/26/20 10:08 INR 0.95 04/26/20 10:08 Sodium 140 mmol/L (136-145) 04/27/20 05:21 Potassium 3.3 mmol/L (3.5-5.1) L 04/27/20 05:21 BUN 10 mg/dL (7-18) 04/27/20 05:21 Creatinine 1.13 mg/dL (0.55-1.3) 04/27/20 05:21 Glucose 88 mg/dL (74-106) 04/27/20 05:21 Magnesium 2.4 mg/dL (1.8-2.4) 04/26/20 10:08 Total Bilirubin 0.7 mg/dL (0.2-1.0) 04/27/20 05:21 AST 10 U/L (15-37) L 04/27/20 05:21 ALT 12 U/L (12-78) 04/27/20 05:21 Alkaline Phosphatase 56 U/L (45-117) 04/27/20 05:21 Lipase 117 U/L (73-393) 04/26/20 05:35 Home Medications: lisinopriL [Lisinopril] 20 mg PO DAILY #30 tablet 03/08/18 Aspirin [Aspirin EC 81 MG] 81 mg PO DAILY #90 tablet. 04/15/20 Metoprolol Tartrate [Lopressor*] 12.5 mg PO BID 6AM 6PM #60 tab 04/15/20 Pantoprazole [Protonix Tab*] 40 mg PO DAILYAC #30 tab 04/15/20 Folic Acid 1 mg PO DAILY 04/26/20 ursodioL [Actigall*] 2 cap PO BID 04/26/20 Followup: Gabo Snow MD [Primary Care Provider] -
== END 2020-04-28 14:20 | disposition home or self-care (01) | DRG 390 ==
LOC: ER 05:02 → ERHOLD 09:54 → 2ND 12:52
PROVIDERS: ADMIT Internal Medicine; ATTEND Internal Medicine
DX: K56.609 Unspecified intestinal obstruction, unspecified as to partial versus complete obstruction (principal); K80.20 Calculus of gallbladder without cholecystitis without obstruction; I10 Essential (primary) hypertension; Z88.5 Allergy status to narcotic agent; Z88.1 Allergy status to other antibiotic agents; Z79.899 Other long term (current) drug therapy; Z90.49 Acquired absence of other specified parts of digestive tract; Z90.710 Acquired absence of both cervix and uterus; Z91.040 Latex allergy status; Z91.018 Allergy to other foods; Z79.82 Long term (current) use of aspirin; Z60.2 Problems related to living alone; Z20.828 Contact with and (suspected) exposure to other viral communicable diseases
CPT/HCPCS: 36415; 71045; 74018; 74019; 74177; 80048; 80076; 83690; 83735; 83880; 84484; 85025; 85049; 85610; 93005; 96365; 96375; 99285; J1650; J2270; J2405; J2543; J7030; J7040; Q9967; U0002

== ENCOUNTER 2021-04-20 11:03 | Observation (INO) | payer OTHER ==
[2021-04-20] MEDS ORDERED: NA CHLORIDE 0.9% 1,000 ML ONE (11:27)
[2021-04-20 12:06] LABS: Urine Blood Trace-lysed (Negative); Urine Glucose Negative (Negative); Urine Protein 1+ (Negative); Urine pH 5.5 (5.0-7.0)
--- NOTE | 2021-04-20 12:09 | RAD REPORT ---
EXAM DESCRIPTION: CT - [id number] - 04/20/2021 11:29 am CLINICAL HISTORY: Trauma, head and neck injury. PAIN COMPARISON: Head C Spine Mpr Wo Con dated 07/04/2019; Head C Spine Mpr Wo Con dated 09/01/2017; CT-SPI [id number] dated 08/03/2009 TECHNIQUE: Axial 5 mm thick images of the head were obtained. Axial 2 mm thick images of the cervical spine were obtained with sagittal and coronal reconstruction images generated and reviewed. All CT scans are performed using dose optimization technique as appropriate and may include automated exposure control or mA/KV adjustment according to patient size. FINDINGS: CT HEAD WITHOUT CONTRAST: No acute hemorrhage, hydrocephalus or extra-axial collection is identified.Moderate generalized brain atrophy is present with moderate periventricular and deep white matter chronic microvascular ischemi c changes.No areas of brain edema or midline shift. The paranasal sinuses and mastoids are clear.The calvarium is intact. Large posterior scalp hematoma is present. CT CERVICAL SPINE WITHOUT CONTRAST: No fracture or subluxation.Moderate lower cervical degenerative spondylosis.No prevertebral soft tiss ues swelling is identified. IMPRESSION: No acute intracranial or cervical spine findings. Large posterior scalp hematoma.
[2021-04-20 12:15] LABS: Protime INR 0.89
[2021-04-20 12:22] LABS: Urine Bacteria 20-50 /HPF (<20); Urine RBC <5 /HPF (NONE SEEN)
[2021-04-20 12:23] LABS: Urine Mucus 1+ /HPF (NONE SEEN)
[2021-04-20] MEDS ORDERED: WATER FOR INJ,STERILE 10 ML ONE (12:34)
[2021-04-20] MEDS ORDERED: CEFTRIAXONE 1000 MG/VIAL ONE (12:34)
[2021-04-20] MEDS ORDERED: LORazepam 2 MG/ML VIAL ONE (12:57)
[2021-04-20] MEDS ORDERED: HYDRALAZINE HCL 20 MG/ML VIAL ONE (12:57)
--- NOTE | 2021-04-20 13:11 | ER ---
Nurse's Notes [facility] Name: Ольга Altman Age: 89 yrs Sex: Female : 1930 Arrival Date: 04/20/2021 Time: 11:05 Bed 18 Private MD: Diagnosis: Acute cystitis-syncope, essential HTN Presentation: 04/20 11:05 Chief complaint: EMS states: At about 0950 pt was taking trash outside when felt dizzy vg1 and passed out; pt stated woke up to neighbors helping her up. +LOC, pt has hematoma on back of head. Pt does take Aspirin. Pt states dizziness and weakness. Coronavirus screen: Vaccine status: Patient reports receiving the 2nd dose of the covid vaccine. Ebola Screen: Patient negative for fever greater than or equal to 101.5 degrees Fahrenheit, and additional compatible Ebola Virus Disease symptoms. Initial Sepsis Screen: Does the patient meet any 2 criteria?. Risk Assessment: Do you want to hurt yourself or someone else? Patient reports no desire to harm self or others. Onset of symptoms was April 20, 2021. 11:05 Method Of Arrival: EMS: [facility] vg1 11:05 Acuity: KENNEY 3 vg1 12:33 Care prior to arrival: None. Mechanism of Injury: Fall. Trauma event details: Injury ll1 occurred in the [facility]. 17:23 Initial Sepsis Screen: Does the patient have a suspected source of infection? No. ll1 Patient's initial sepsis screen is negative. Triage Assessment: 11:07 General: Appears in no apparent distress. uncomfortable, Behavior is cooperative. vg1 Trauma Activation: Alert Physician: ED Physician; Name: hope; Notified At: ; Arrived At: Physician: General Surgeon; Name: ; Notified At: ; Arrived At: Physician: Radiology; Name: ; Notified At: ; Arrived At: Physician: Respiratory; Name: ; Notified At: ; Arrived At: Physician: Lab; Name: ; Notified At: ; Arrived At: Historical: - Allergies: 11:07 Codeine; vg1 11:07 Demerol; vg1 11:07 Fentanyl; vg1 11:07 Opioids; vg1 11:07 Sulfa (Sulfonamide Antibiotics); vg1 18:08 SODIUM CHLORIDE; ll1 - Home Meds: 11:07 lisinopril Oral [Active]; metoprolol tartrate 25 mg Oral tab [Active]; vg1 - PMHx: 11:07 Atrial Fib; gallbladder infection; Hypertension; Hypothyroidism; vg1 - Immunization history:: Adult Immunizations up to date, Client reports receiving the 2nd dose of the Covid vaccine. - Social history:: Smoking status: Patient denies any tobacco usage or history of. Patient/guardian denies using alcohol, street drugs, The patient lives with family. - Immunization history: Last tetanus immunization: - up to date. - Family history:: not pertinent, pertinent for. Screenin:31 Abuse screen: Denies threats or abuse. Nutritional screening: No deficits noted. ll1 Tuberculosis screening: No symptoms or risk factors identified. Fall Risk Fall in past 12 months (25 points). IV access (20 points). Gait- Impaired (20 pts.). Mental Status- Overestimates/Forgets Limitations (15 pts.). Total Milner Fall Scale indicates High Risk Score (45 or more points). Fall prevention measures have been instituted. Side Rails Up X 2 Placed Close to Nursing Station Frequent Obs/Assessments Occuring Family Present and informed to notify staff if the need to leave the bedside As available patient and family educated on Fall Prevention Program and Strategies. Primary Survey: 12:32 NO uncontrolled hemorrhage observed. A: The patient is alert. Airway: patent. ll1 Breathing/Chest: Respiratory pattern: regular, Respiratory effort: spontaneous, unlabored, Breath sounds: clear. Circulation: Pulses: palpable right radial artery and left radial artery. Disability Alert. Exposure/Environment: A warming method has been applied: A warm blanket has been provided to the patient. 12:34 Reassessment Airway Airway Patent Breathing/Chest Respiratory pattern Regular ll1 Respiratory effort Spontaneous Unlabored Breath sounds Clear Circulation Pulses Palpable Color [facility] Disability Alert. Assessment: 12:05 Reassessment: No changes from previously documented assessment. Patient and/or family ll1 updated on plan of care and expected duration. Pain level reassessed. Patient is alert, oriented x 3, equal unlabored respirations, skin warm/dry/pink. 13:05 Reassessment: No changes from previously documented assessment. Patient and/or family ll1 updated on plan of care and expected duration. Pain level reassessed. Patient is alert, oriented x 3, equal unlabored respirations, skin warm/dry/pink. Pain: Complains of pain in head Quality of pain is described as aching. 14:05 Reassessment: No changes from previously documented assessment. Patient and/or family ll1 updated on plan of care and expected duration. Pain level reassessed. Patient is alert, oriented x 3, equal unlabored respirations, skin warm/dry/pink. 15:00 Reassessment: No changes from previously documented assessment. Patient and/or family ll1 updated on plan of care and expected duration. Pain level reassessed. Patient is alert, oriented x 3, equal unlabored respirations, skin warm/dry/pink. 16:00 Reassessment: In MRI. ll1 16:45 Reassessment: No changes from previously documented assessment. Patient and/or family ll1 updated on plan of care and expected duration. Pain level reassessed. Patient is alert, oriented x 3, equal unlabored respirations, skin warm/dry/pink. back from MRI. 17:32 Reassessment: No changes from previously documented assessment. Patient and/or family ll1 updated on plan of care and expected duration. Pain level reassessed. Patient is alert, oriented x 3, equal unlabored respirations, skin warm/dry/pink. Vital Signs: 11:05 Weight 74.84 kg; Height 5 ft. 6 in. (167.64 cm); vg1 11:13 BP 221 / 116; Pulse 67; Resp 17; Temp 97.8(O); Pulse Ox 99% ; Weight 74.84 kg; jt3 11:22 BP 200 / 88; ll1 12:31 BP 231 / 115; Pulse 67; Resp 17; Pulse Ox 99% ; ll1 12:34 BP 228 / 92; ll1 12:51 BP 187 / 71; ll1 13:36 BP 152 / 90; Pulse 79; Resp 16; Pulse Ox 99% ; ll1 16:55 BP 180 / 87; Pulse 75; Resp 16; Pulse Ox 99% on R/A; ll1 17:22 BP 158 / 89; ll1 11:13 Body Mass Index 26.63 (74.84 kg, 167.64 cm) jt3 16:[address] ll1 Parmelee Coma Score: 12:32 Eye Response: spontaneous(4). Verbal Response: oriented(5). Motor Response: obeys ll1 commands(6). Total: 15. Trauma Score (Adult): 12:32 Eye Response: spontaneous(1); Verbal Response: oriented(1); Motor Response: obeys ll1 commands(2); Systolic BP: > 89 mm Hg(4); Respiratory Rate: 10 to 29 per min(4); Carlton Score: 15; Trauma Score: 12 ED Course: 11:05 Patient arrived in ED. vg1 11:05 Hernando Robertson MD is Attending Physician. ma2 11:07 Triage completed. vg1 11:07 Arm band placed on. vg1 11:15 Cecil Bob, LINCOLN is Primary Nurse. ll1 11:29 CT Head C Spine In Process Unspecified. EDMS 12:11 Urine Microscopic Only Sent. ll1 12:32 Patient has correct armband on for positive identification. Call light in reach. Side ll1 rails up X 1. classroom monitor on. Pulse ox on. NIBP on. 12:33 Patient maintains SpO2 saturation greater than 95% on room air. Thermoregulation: warm ll1 blanket given to patient. 13:10 Landon Ricketts is Hospitalizing Provider. ma2 14:14 No provider procedures requiring assistance completed. 1 14:31 Hospitalizing Provider role handed off by Landon Ricketts sc2 14:31 Gabo Snow MD is Hospitalizing Provider. ma2 17:32 Patient admitted, IV remains in place. ll1 Administered Medications: 12:00 Drug: D5W 500 ml Route: IV; Rate: bolus; Site: right hand; ll1 14:00 Follow up: Response: No adverse reaction; IV Status: Completed infusion; IV Intake: ll1 500ml 12:01 Not Given (Patient Refused): NS 0.9% 1000 ml IV at 1 bolus Per protocol; 1000 mL bolus 1 12:48 Drug: Rocephin (cefTRIAXone) 1 grams Route: IV; Rate: calculated rate; Site: right hand;jt3 14:14 Follow up: Response: No adverse reaction; IV Status: Completed infusion; IV Intake: [id number] 13:09 Drug: hydrALAZINE 10 mg Route: IVP; Site: right hand; ll1 14:14 Follow up: Response: No adverse reaction ll1 13:09 Drug: Ativan (LORazepam) 1 mg Route: IVP; Site: right hand; ll1 14:14 Follow up: Response: No adverse reaction ll1 Intake: 14:00 IV: 500ml; Total: 500ml. ll1 14:14 IV: 20ml; Total: 520ml. ll1 Output: 12:32 Urine: 350ml (Voided); Total: 350ml. ll1 Outcome: 13:10 Decision to Hospitalize by Provider. ma2 17:23 Patient's length of stay in the Emergency Department was greater than 2 hours. 1 17:30 Admitted to Tele accompanied by leslie, via stretcher, room 232, with chart, Report ll1 called to Chantel Lewis 17:30 Condition: stable 17:30 Instructed on the need for admit. 18:05 Patient left the ED. ll1 Signatures: Dispatcher [employer] EDMS Hernando Robertson MD MD ma2 Alysia Hughes, RN RN 1 Cecil Bob RN RN ll1 Agapito Mcdermott RN RN jt3 Corrections: (The following items were deleted from the chart) 12:01 11:50 NS 0.9% 1000 ml IV at 1 bolus in right hand ll1 ll1 16:56 16:00 Reassessment: No changes from previously documented assessment. Patient and/or ll1 family updated on plan of care and expected duration. Pain level reassessed. Patient is alert, oriented x 3, equal unlabored respirations, skin warm/dry/pink. ll1
--- NOTE | 2021-04-20 13:11 | EDPHYS ---
Physician Documentation [facility] Name: Ольга Altman Age: 89 yrs Sex: Female : 1930 Arrival Date: 04/20/2021 Time: 11:05 Bed 18 Private MD: ED Physician Hernando Robertson HPI: 04/20 13:05 This 89 yrs old Female presents to ER via EMS with complaints of Fall Injury. ma2 13:05 Details of fall: The patient fell from an upright position. Associated injuries: The ma2 patient sustained injury to the head. Severity of symptoms: At their worst the symptoms were moderate, in the emergency department the symptoms are unchanged. The patient has not experienced similar symptoms in the past. Historical: - Allergies: 11:07 Codeine; vg1 11:07 Demerol; vg1 11:07 Fentanyl; vg1 11:07 Opioids; vg1 11:07 Sulfa (Sulfonamide Antibiotics); vg1 18:08 SODIUM CHLORIDE; ll1 - Home Meds: 11:07 lisinopril Oral [Active]; metoprolol tartrate 25 mg Oral tab [Active]; vg1 - PMHx: 11:07 Atrial Fib; gallbladder infection; Hypertension; Hypothyroidism; vg1 - Immunization history:: Adult Immunizations up to date, Client reports receiving the 2nd dose of the Covid vaccine. - Social history:: Smoking status: Patient denies any tobacco usage or history of. Patient/guardian denies using alcohol, street drugs, The patient lives with family. - Immunization history: Last tetanus immunization: - up to date. - Family history:: not pertinent, pertinent for. ROS: 13:05 Constitutional: Negative for fever, chills, and weight loss. ma2 13:05 All other systems are negative. Exam: 13:05 Constitutional: This is a well developed, well nourished patient who is awake, alert, ma2 and in no acute distress. Head/Face: occipital hematoma, otherwsie Normocephalic, atraumatic. Eyes: Pupils equal round and reactive to light, extra-ocular motions intact. Lids and lashes normal. Conjunctiva and sclera are non-icteric and not injected. Cornea within normal limits. Periorbital areas with no swelling, redness, or edema. ENT: Nares patent. No nasal discharge, no septal abnormalities noted. Tympanic membranes are normal and external auditory canals are clear. Oropharynx with no redness, swelling, or masses, exudates, or evidence of obstruction, uvula midline. Mucous membranes moist. Neck: Trachea midline, no thyromegaly or masses palpated, and no cervical lymphadenopathy. Supple, full range of motion without nuchal rigidity, or vertebral point tenderness. No Meningismus. Chest/axilla: Normal chest wall appearance and motion. Nontender with no deformity. No lesions are appreciated. Cardiovascular: Regular rate and rhythm with a normal S1 and S2. No gallops, murmurs, or rubs. Normal PMI, no JVD. No pulse deficits. Respiratory: Lungs have equal breath sounds bilaterally, clear to auscultation and percussion. No rales, rhonchi or wheezes noted. No increased work of breathing, no retractions or nasal flaring. Abdomen/GI: Soft, non-tender, with normal bowel sounds. No distension or tympany. No guarding or rebound. No evidence of tenderness throughout. Back: No spinal tenderness. No costovertebral tenderness. Full range of motion. Skin: Warm, dry with normal turgor. Normal color with no rashes, no lesions, and no evidence of cellulitis. MS/ Extremity: Pulses equal, no cyanosis. Neurovascular intact. Full, normal range of motion. Neuro: Awake and alert, GCS 15, oriented to person, place, time, and situation. Cranial nerves II-XII grossly intact. Motor strength 5/5 in all extremities. Sensory grossly intact. Cerebellar exam normal. Normal gait. Vital Signs: 11:05 Weight 74.84 kg; Height 5 ft. 6 in. (167.64 cm); vg1 11:13 BP 221 / 116; Pulse 67; Resp 17; Temp 97.8(O); Pulse Ox 99% ; Weight 74.84 kg; jt3 11:22 BP 200 / 88; ll1 12:31 BP 231 / 115; Pulse 67; Resp 17; Pulse Ox 99% ; ll1 12:34 BP 228 / 92; ll1 12:51 BP 187 / 71; ll1 13:36 BP 152 / 90; Pulse 79; Resp 16; Pulse Ox 99% ; ll1 16:55 BP 180 / 87; Pulse 75; Resp 16; Pulse Ox 99% on R/A; ll1 17:22 BP 158 / 89; ll1 11:13 Body Mass Index 26.63 (74.84 kg, 167.64 cm) jt3 16:[address] ll1 Valmora Coma Score: 12:32 Eye Response: spontaneous(4). Verbal Response: oriented(5). Motor Response: obeys ll1 commands(6). Total: 15. Trauma Score (Adult): 12:32 Eye Response: spontaneous(1); Verbal Response: oriented(1); Motor Response: obeys ll1 commands(2); Systolic BP: > 89 mm Hg(4); Respiratory Rate: 10 to 29 per min(4); Carlton Score: 15; Trauma Score: 12 MDM: 11:05 Patient medically screened. hi2 13:05 Differential diagnosis: abrasion, contusion, sprain, strain. Differential diagnosis: ma2 fall, syncope, has uti, head trauma . Data reviewed: vital signs, nurses notes. Counseling: I had a detailed discussion with the patient and/or guardian regarding: the historical points, exam findings, and any diagnostic results supporting the discharge/admit diagnosis, the presence of at least one elevated blood pressure reading (>120/80) during this emergency department visit, the need for outpatient follow up. Response to treatment: the patient's symptoms have markedly improved after treatment. 14:30 ED course: discussed with dr. snow he recommends mri brain and cardiac workup . [facility] 04/20 11:20 Order name: Basic Metabolic Panel; Complete Time: 14:29 [facility] 04/20 11:20 Order name: CBC with Diff [facility] 04/20 11:20 Order name: CPK; Complete Time: 14:29 [facility] 04/20 11:20 Order name: Ckmb; Complete Time: 14:29 [facility] 04/20 11:20 Order name: Hepatic Function; Complete Time: 14:29 [facility] 04/20 11:20 Order name: Lipase; Complete Time: 14:29 [facility] 04/20 11:20 Order name: Magnesium; Complete Time: 14:29 [facility] 04/20 11:20 Order name: Protime (+inr); Complete Time: 12:20 [facility] 04/20 11:20 Order name: Ptt, Activated; Complete Time: 12:20 [facility] 04/20 11:20 Order name: Troponin (emerg Dept Use Only); Complete Time: 14:29 ma2 04/20 12:06 Order name: Urine Microscopic Only; Complete Time: 12:43 ss 04/20 12:07 Order name: Urine Dipstick-Ancillary; Complete Time: 12:20 EDMS 04/20 12:23 Order name: Urine Culture EDMS 04/20 13:42 Order name: COVID-19 (Coronavirus) Document "Date of Onset" if Symptomatic 04/20 11:20 Order name: CT Head C Spine; Complete Time: 12:20 hi2 04/20 11:20 Order name: EKG; Complete Time: 11:21 hi2 04/20 14:18 Order name: SARS-COV-2 RT PCR EDMS 04/20 14:36 Order name: Basic Metabolic Panel EDMS 04/20 14:36 Order name: Basic Metabolic Panel EDMS 04/20 14:36 Order name: Regular EDMS 04/20 14:36 Order name: EKG Electrocardiogram EDMS 04/20 14:36 Order name: Troponin I EDMS 04/20 14:42 Order name: Brain W/Wo Cont EDMS 04/20 11:20 Order name: Cardiac monitoring; Complete Time: 12:11 hi2 04/20 11:20 Order name: EKG - Nurse/Tech; Complete Time: 12:11 hi2 04/20 11:20 Order name: IV Saline Lock; Complete Time: 11:22 hi2 04/20 11:20 Order name: Labs collected and sent; Complete Time: 11:22 [facility] 04/20 11:20 Order name: NPO; Complete Time: 11:22 [facility] 04/20 11:20 Order name: O2 Per Protocol; Complete Time: 11:22 [facility] 04/20 11:20 Order name: O2 Sat Monitoring; Complete Time: 11:22 hi2 04/20 11:20 Order name: Urine Dipstick-Ancillary (obtain specimen); Complete Time: 12:02 [facility] 04/20 11:40 Order name: Labs - recollect needed: recollect all the blood; Complete Time: 13:41 04/20 14:36 Order name: EKG Electrocardiogram EDMS Administered Medications: 12:00 Drug: D5W 500 ml Route: IV; Rate: bolus; Site: right hand; [facility] 14:00 Follow up: Response: No adverse reaction; IV Status: Completed infusion; IV Intake: ll1 500ml 12:01 Not Given (Patient Refused): NS 0.9% 1000 ml IV at 1 bolus Per protocol; 1000 mL bolus ll1 12:48 Drug: Rocephin (cefTRIAXone) 1 grams Route: IV; Rate: calculated rate; Site: right hand;jt3 14:14 Follow up: Response: No adverse reaction; IV Status: Completed infusion; IV Intake: [id number] 13:09 Drug: hydrALAZINE 10 mg Route: IVP; Site: right hand; ll1 14:14 Follow up: Response: No adverse reaction ll1 13:09 Drug: Ativan (LORazepam) 1 mg Route: IVP; Site: right hand; ll1 14:14 Follow up: Response: No adverse reaction ll1 Disposition Summary: 04/20/21 13:10 Hospitalization Ordered Hospitalization Status: Observation ma2 Location: Telemetry/MedSurg (observation) ma2 Condition: Stable ma2 Problem: new ma2 Symptoms: are unchanged ma2 Bed/Room Type: Standard hi2 Provider: Gabo Snow(04/20/21 14:31) ma2 Room Assignment: [facility](04/20/21 16:51) Diagnosis - Acute cystitis - syncope, essential HTN ma2 Forms: - Medication Reconciliation Form ma2 - SBAR form ma2 Signatures: Dispatcher [employer] EDLianne Cano RN LINCOLN dw Hernando Robertson MD MD ma2 Nicol Duncan Victoria, RN RN vg1 Cecil Bob RN RN ll1 Agapito Mcdermott RN RN jt3 Corrections: (The following items were deleted from the chart) 14:17 13:42 CORONAVIRUS ordered. EDMS EDMS 14:31 13:10 Landon Ricketts hi2 ma2 14:42 14:36 Brain With Cont ordered. EDMS EDMS 16:51 13:10 ma2
[2021-04-20 13:39] LABS: Basophils % 0.1 % (0-1.3); Hematocrit 41.5 % (36.0-45.0); Lymphocytes % 7.6 % (15.3-44.8); MPV 7.2 fL (7.6-11.3); RBC Red Blood Cell Count 4.79 M/uL (3.86-4.86)
[2021-04-20 13:50] LABS: ALT/SGPT 18 U/L (12-78); AST/SGOT 13 U/L (15-37); Albumin 3.3 g/dL (3.4-5.0); Alkaline Phosphatase 79 U/L (45-117); BUN Blood Urea Nitrogen 17 mg/dL (7-18); Bicarbonate 26 mmol/L (21-32); Bilirubin Direct 0.1 mg/dL (0-0.2); Bilirubin Total 0.4 mg/dL (0.2-1.0); Creatine Phosphokinase 57 U/L (26-192); Glucose Level 128 mg/dL (74-106); Lipase 115 U/L (73-393); Potassium 3.2 mmol/L (3.5-5.1); Protein, Total 7.2 g/dL (6.4-8.2); Sodium Level 143 mmol/L (136-145); Troponin (Emerg Dept Use Only) 0.06 ng/mL (0.0-0.045)
[2021-04-20 13:52] LABS: CKMB Creatine Kinase MB < 1.0 ng/mL (1.0-3.6)
[2021-04-20] MEDS ORDERED: HYDROCODONE/APAP 5/325 MG TAB PO PRN (14:33)
[2021-04-20] MEDS ORDERED: ONDANSETRON 4 MG/2 ML VIAL IV PRN (14:33)
[2021-04-20] MEDS ORDERED: MORPHINE 4 MG/ML SYR IV PRN (14:33)
[2021-04-20 19:07] VITALS: BMI 26.6
[2021-04-20 20:20] LABS: Platelet Estimate ADEQ; White Blood Cell Scan OK (OK)
[2021-04-20 20:21] LABS: Blood Morphology Comment NOT SEEN (NOT SEEN)
[2021-04-20] MEDS ORDERED: CEFTRIAXONE 1 GM/NS 50 ML 1 GM/50 ML BAG IV SCH (21:00)
[2021-04-20 21:38] VITALS: O2SAT 98
[2021-04-20] MEDS ORDERED: cloNIDine HCL 0.1 MG TAB PO PRN (23:07)
[2021-04-21 04:16] VITALS: BP 132/61; TEMP 97.5
[2021-04-21 05:56] LABS: Absolute Lymphocytes (CBC) 1.2 K/uL (0.7-4.9); Basophils % 0.3 % (0-1.3); Hematocrit 36.7 % (36.0-45.0); Lymphocytes % 14.9 % (15.3-44.8); MPV 7.1 fL (7.6-11.3); RBC Red Blood Cell Count 4.27 M/uL (3.86-4.86)
[2021-04-21 06:12] LABS: Potassium 3.1 mmol/L (3.5-5.1)
[2021-04-21] MEDS ORDERED: METOPROLOL TAR 25 MG TAB PO SCH (08:00)
--- NOTE | 2021-04-21 08:25 | RAD REPORT ---
EXAM DESCRIPTION: MRI - Brain W/Wo Cont - 04/20/2021 4:33 pm CLINICAL HISTORY: syncope Fall and hit back of head altered mental status COMPARISON: No comparisons TECHNIQUE: Sagittal T1-weighted images were obtained along with PD/heavily T2-weighted and T2-FLAIR images. Axial DWI and ADC mapping sequences were also obtained along with coronal heavily T2-weighted images were obtained. IV contrast was administered. FINDINGS: No intracranial hemorrhage, mass or acute infarction. There is no edema or shift of midlin e structures. No extra-axial fluid collections. Signal voids are seen as a normal finding in the sachin r intracranial vessels. Advanced chronic small vessel ischemic changes. Cerebral atrophy. Mastoid air cells and paranasal sinuses are clear. IMPRESSION: No acute intracranial abnormality. Specifically, no evidence of acute infarct or abnorma l enhancement. Advanced chronic small vessel ischemic changes.
--- NOTE | 2021-04-21 08:45 | P.SSS ---
Patient History Date of Service: 04/21/21 Reason for admission: PASSED OUT History of Present Illness: MS MILES IS INDEPENDENT LADY WHO DOES NOT WANT ANY HELP. SHE HAS CHRONIC CHOLCYSTITIS AN DOES NOT WANT SURGERY. 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 SHE IS BACK TO HER BASELINE. SHE HAS NO CVA ON MRI. SHE SHOWS SIGN OF UTI POSSIBLE BUT ST CATH URINE IS PENDING. HER WBC COUNT IS DOWN FROM 14K TO 8K ON ROCEPHIN. SHE IS STABLE TO GO HOME. SHE DOES NOT WANT TO WAIT HERE TO SEE CARDIOLGIST FOR SYNCOPE. IF SHE HAS ANY MORE EPISODES SHE MAY HAVE SOME ARRYTHMIA OR ABSENCE SEIZURES. WE WILL FU ON THIS ON OUTPATIENT BASIS. SHE HAS MILD LOW K AND IT HAS BEEN REPLACED. WILL FU. Allergies Antihistamines - Alkylamine Allergy (Verified 04/14/20 20:39) Shortness of breath codeine Allergy (Verified 04/14/20 20:39) Shortness of breath egg Allergy (Verified 04/14/20 20:39) Nausea/Vomiting Latex, Natural Rubber Allergy (Verified 04/14/20 20:39) Itching Sulfa (Sulfonamide Antibiotics) Allergy (Verified 04/14/20 20:39) Nausea/Vomiting Home Medications: Aspirin [Aspirin EC 81 MG] 81 mg PO DAILY #90 tablet. 04/15/20 Pantoprazole [Protonix Tab*] 40 mg PO DAILYAC #30 tab 04/15/20 Folic Acid 1 mg PO DAILY 04/26/20 ursodioL [Actigall*] 2 cap PO BID 04/26/20 Metoprolol Tartrate [Lopressor*] 25 mg PO BREAKFAST 04/20/21 Cefuroxime [Ceftin] 250 mg PO BID #14 tab 04/21/21 - Past Medical/Surgical History Has patient received pneumonia vaccine in the past: No Diabetic: No -: Hypothyroidism -: Hypertension -: Atrial fibrillation not on anticoagulation -: scarlet fever as a child -: sinus infection -: Hysterectomy -: Appendectomy -: Partial colectomy -: Cataract surgery -: Right elbow surgery -: Left wrist surgery Psychosocial/ Personal History: She is a . She has one son who checks on her. SHe lives by herself. - Family History Sister -: Cancer Brother -: Cancer Notes: Brain Mother -: Heart disease, Other (see notes) Notes: IA - Social History Smoking Status: Never smoker Alcohol use: No CD- Drugs: No Caffeine use: Yes Review of Systems 10-point ROS is otherwise unremarkable Physical Examination - Vital Signs Temperature: 97.5 F Blood Pressure: 132/61 Pulse: 64 Respirations: 19 Pulse Ox (%): 19 - Physical Exam General: Alert, In no apparent distress HEENT: Atraumatic, PERRLA, Mucous membr. moist/pink, Other (HEMATOMA BACK OF HEAD. NOT BLEEDING. ), EOMI, Sclerae nonicteric Neck: Supple, 2+ carotid pulse no bruit, No LAD, Without JVD or thyroid a bnormality Respiratory: Clear to auscultation bilaterally, Normal air movement Cardiovascular: Regular rate/rhythm, Normal S1 S2 Gastrointestinal: Normal bowel sounds, No tenderness Musculoskeletal: No tenderness Integumentary: No rashes Neurological: Normal gait, Normal speech, Normal strength at 5/5 x4 extr, Normal tone, Normal affect Lymphatics: No axilla or inguinal lymphadenopathy - Studies Laboratory Data (last 24 hrs) 04/20/21 13:27: WBC 13.50 H, Hgb 13.6, Hct 41.5, Plt Count 347 04/20/21 13:27: Sodium 143, Potassium 3.2 L, BUN 17, Creatinine 0.94, Glucose 128 H, Magnesium 2.0, Total Bilirubin 0.4, AST 13 L, ALT 18, Alkaline Phosphatase 79, Lipase 115 04/20/21 11:15: PT 10.6, INR 0.89, APTT 38.2 H - Diagnosis (Problem(s)) (1) Syncope Current Visit: Yes Status: Acute Plan: PLAN IN HPI. CE MILD HIGH THAT CAN BE FROM TRAUMA OR INFECTION. D DOUBT IA. (2) Hypokalemia Current Visit: Yes Status: Acute Plan: WILL FU (3) UTI (urinary tract infection) Current Visit: Yes Status: Acute Plan: ORAL CEFTIN. (4) Atrial fibrillation Onset Date: 03/09/18 Current Visit: No Status: Chronic Plan: SHE DOES NOT WANT ANY ANTICOAGULATION TO PREVENT STROKE. - Disposition Disposition: [place] [facility] CARE Condition: FAIR
[2021-04-21] MEDS ORDERED: ursodioL 300 MG CAP PO SCH (09:00)
[2021-04-21] MEDS ORDERED: FOLIC ACID 1 MG TABLET PO SCH (09:00)
[2021-04-21] MEDS ORDERED: ASPIRIN EC 81 MG TAB PO SCH (09:00)
[2021-04-21] MEDS ORDERED: POTASSIUM CL SA 10 MEQ TAB PO ONE (09:00)
[2021-04-21] MEDS ORDERED: ENOXAPARIN 40 MG/0.4 ML SQ SCH (09:00)
[2021-04-21] MEDS ORDERED: URSODIOL 300 MG PO SCH (09:00)
[2021-04-22] MEDS ORDERED: PANTOPRAZOLE 40MG TABLET PO SCH (06:30)
--- OUTSIDE RECORDS SUMMARY | 2021-04-28 12:16 | XMS REPORT | Continuity of Care Document ---
:1930 Author Organization [facility] t Address [address] [place] [address] Care Team Providers Name Role Phone Susan BISWAS Attending Clinician Unavailable Susan Biswas MD Attending Clinician Susan BISWAS Admitting Clinician Unavailable Payers Payer Name Policy Type Policy Number Effective Date Expiration Date S ource MEDICARE PART A [id number] 1996 \T\ B 00:00:00 [employer] INDEMNITY [id number] 2014 00:00:00 Problems Condition Condition Condition Status Onset Resolution Last Treating Co mments Source Name Details Category Date Date Treatment Clinician Date Essential Essential Diagnosis Active [facility]primary[facility] (primary[facility] - hypertensi hypertensi Me moria on on l [facility] Osteopenia Osteopenia Diagnosis Active [facility] - unspecifie unspecifie Me moria d location d location l [facility] Acquired Acquired Diagnosis Active [facility] hypothyroi hypothyroi Jessica kes - dism dism Memoria l [facility] Allergies, Adverse Reactions, Alerts Allergy Allergy Status Severity Reaction(s) Onset Inactive Treating Comm ents Source Name Type Date Date Clinician ANTIHIST DRUG Active Palpitations 2019-0 Un kathia IMINE - [facility]:: [facility] CODEINE DRUG Active Unknown-Cmnt 2020-0 Uni vers INGREDI 07-08 ity of 00:00: [place] [facility] MORPHINE DRUG Active Unknown-Cmnt 2020-0 Un kathia INGREDI 07-08 ity of 00:00: [place] [facility] Sulfa Adverse Active digestive [facility] Reaction problems [facility] Medications Ordered Filled Start Stop Current Ordering Indication Dosage Frequency Signature Comments Components Source Medication Medication Date Date Medication? Clinician (SIG) Name Name Metoprolol Metoprolol 2019-0 Yes Keith [address] [facility] Succinate Succinate 1-25 Maddy Luke s - ER ER 00:00: Memoria 00 l [facility] Amlodipine Amlodipine Yes Keith [address] [facility] Besylate Besylate Maddy [facility] Levothyroxi Levothyroxi Yes Keith [address] [facility] ne Sodium ne Sodium Maddy on an Stef es - empty Memoria stomach in l the [facility] Lisinopril Lisinopril Yes Keith [address] [facility] Maddy [facility] Procedures This patient has no known procedures. Encounters Start End Encounter Admission Attending Care Care Encounter Source Date/Time Date/Time Type Type Clinicians Facility Department ID 2019-08-30 2019-08-30 [id number] [facility] 14:00:00 14:00:00 [facility] 2019-07-28 2019-07-28 [id number] 13:42:08 14:29:42 Visit [facility] [id number] Surgical [id number] Specialti [id number] [place] 2019-07-09 2019-07-09 [facility] [id number] [facility] 10:03:38 23:59:00 [facility] 2018-08-25 2018-08-25 Outpatient Shilpi Henley [id number] [facility] 09:15:00 09:15:00 [facility] Family Medicine Medicine [facility] 2018-08-11 2018-08-11 Outpatient Shilpi Henley [id number] [facility] 09:45:00 09:45:00 [facility] Family Medicine l Medicine [facility] 2018-08-03 2018-08-03 Outpatient Shilpi Henley [id number] [facility] 11:00:00 11:00:00 t [facility] 2018-07-09 2018-07-09 Outpatient Shilpi Henley [id number] [facility] 16:56:00 16:56:00 t [facility] 2018-07-09 2018-07-09 Outpatient Shilpi Henley [id number] [facility] 11:15:00 11:15:00 [facility] Clinics Results This patient has no known results.
== END 2021-04-21 09:50 | disposition home or self-care (01) ==
LOC: ER 11:03 → ERHOLD 14:46 → 2ND 17:31
PROVIDERS: ADMIT Internal Medicine; ATTEND Internal Medicine
DX: R55 Syncope and collapse (principal); E87.6 Hypokalemia; N39.0 Urinary tract infection, site not specified; I48.91 Unspecified atrial fibrillation; E03.9 Hypothyroidism, unspecified; I10 Essential (primary) hypertension; Z91.012 Allergy to eggs; Z91.040 Latex allergy status; Z88.2 Allergy status to sulfonamides; Z20.822 Contact with and (suspected) exposure to COVID-19
CPT/HCPCS: 96365; 96361; 87088; 85025 ×2; 87086; 80048 ×2; 36415; 83735; 82550; 85610; 80076; 85730; 87077; 87186; 84484 ×2; 82553; 83690; 70450; 72125; 70553; 96375; 99285; U0003; A9577; J0360; J7060; J7030; J0696; G0378 ×3; 81003; 81015